=== PATIENT | male | born 1990 | race Caucasian/White ===

== ENCOUNTER 2023-04-22 15:52 | Outpatient (OUT) | payer OTHER, SELFPAY ==
[2023-04-22 16:21] LABS: Basophils Absolute Auto 0.1 10^3/uL (0.0-0.1); Basophils Percent Auto 0.5 % (0.2-2.0); Eosinophils Percent Auto 0.1 % (0.9-7.0); Hematocrit 42.5 % (42.0-54.0); Immature Granulocytes Abs Auto 0.17 10^3/uL (0.00-0.03); Immature Granulocytes Pct Auto 1.1 % (0.0-0.5); Lymphocytes Absolute Auto 2.3 10^3/uL (1.2-3.8); Lymphocytes Percent Auto 15.5 % (20.5-60.0); Mean Corpuscular HGB Conc 32.9 g/dL (29.9-35.2); Mean Corpuscular Hemoglobin 28.7 pg (25.9-34.0); Mean Corpuscular Volume 87.3 fL (80.0-94.0); Mean Platelet Volume 9.4 fL (9.5-13.5); Monocytes Absolute Auto 0.9 10^3/uL (0.3-0.8); Monocytes Percent Auto 6.1 % (1.7-12.0); Neutrophils Absolute Auto 11.6 10^3/uL (1.4-6.5); Neutrophils Percent Auto 76.7 % (43.0-75.0); Nucleated Red Blood Cells 0; Platelet Count 271 10^3/uL (150-450); Red Blood Count 4.87 10^6/uL (4.70-6.10); Red Cell Distribution Width 13.3 % (11.0-15.0); White Blood Count 15.1 10^3/uL (4.0-11.0)
[2023-04-22 16:33] LABS: Alanine Aminotransferase 70 U/L (16-63); Aspartate Amino Transferase 43 U/L (15-37); Triglycerides 63 mg/dL (<=150)
[2023-04-22 16:44] LABS: Erythrocyte Sedimentation Rate 39 mm/hr (<=15)
== END 2023-04-22 15:53 ==
LOC: LAB 15:56
PROVIDERS: PCP Family Medicine; Visit Provider Family Medicine
DX: L73.2 Hidradenitis suppurativa (principal); G89.3 Neoplasm related pain (acute) (chronic); Z79.899 Other long term (current) drug therapy
CPT/HCPCS: 36415; 84450; 84460; 84478; 85025; 85652

== ENCOUNTER 2023-05-26 14:50 | Outpatient (OUT) | payer OTHER, SELFPAY ==
[2023-05-26 15:23] LABS: Alanine Aminotransferase 38 U/L (16-63); Aspartate Amino Transferase 22 U/L (15-37)
[2023-05-26 15:28] LABS: Erythrocyte Sedimentation Rate 40 mm/hr (<=15)
== END 2023-05-26 14:51 | disposition home or self-care (01) ==
LOC: LAB 14:50
PROVIDERS: PCP Family Medicine
DX: Z79.899 Other long term (current) drug therapy (principal)
CPT/HCPCS: 36415; 84450; 84460; 85652

== ENCOUNTER 2023-06-29 08:12 | Outpatient (OUT) | payer OTHER, SELFPAY ==
[2023-06-29 08:56] LABS: Alanine Aminotransferase 31 U/L (16-63); Aspartate Amino Transferase 19 U/L (15-37)
== END 2023-06-29 08:13 | disposition home or self-care (01) ==
LOC: LAB 08:12
PROVIDERS: PCP Family Medicine
DX: L73.2 Hidradenitis suppurativa (principal); G89.3 Neoplasm related pain (acute) (chronic)
CPT/HCPCS: 36415; 84450; 84460

== ENCOUNTER 2023-08-03 16:59 | Outpatient (OUT) | payer OTHER, SELFPAY ==
[2023-08-03 17:31] LABS: Alanine Aminotransferase 30 U/L (16-63); Albumin Level 3.9 g/dL (3.4-5.0); Alkaline Phosphatase 69 U/L (46-116); Anion Gap 10.5; Aspartate Amino Transferase 17 U/L (15-37); Bilirubin Total 0.5 mg/dL (0.2-1.0); Calcium 8.8 mg/dL (8.5-10.1); Carbon Dioxide 29.4 mmol/L (21.0-32.0); Chloride 102 mmol/L (98-107); Estimated GFR (African America >60 (>=60); Estimated GFR (Non-African Ame >60 (>=60); Glucose 110 mg/dL (74-106); Potassium 3.9 mmol/L (3.5-5.1); Sodium 138 mmol/L (136-145); Total Protein 7.9 g/dL (6.4-8.2)
== END 2023-08-03 17:00 | disposition home or self-care (01) ==
LOC: LAB 16:59
PROVIDERS: PCP Family Medicine
DX: L73.2 Hidradenitis suppurativa (principal); G89.3 Neoplasm related pain (acute) (chronic); Z79.899 Other long term (current) drug therapy; L21.8 Other seborrheic dermatitis
CPT/HCPCS: 36415; 80053

== ENCOUNTER 2024-06-15 14:45 | Emergency (ER) | payer OTHER, SELFPAY ==
[2024-06-15 14:55] VITALS: BP 153/107; PULSE 80; TEMP 37.1; O2SAT 99; BMI 39.2
--- NOTE | 2024-06-15 15:23 | ED_ITS ---
HPI - Skin/Abscess/Foreign Bdy General Chief complaint: Skin/Abscess/Foreign Body Stated complaint: REDNESS/GROIN PAIN Time Seen by Provider: 06/15/24 15:02 History of Present Illness HPI narrative: This patient is here for evaluation of sores in his groin area. This is a ongoing and long-lasting chronic problem. He states that he has hidradenitis suppurativa, he describes it as an autoimmune disorder. He is under the care of Dr. SHETTY in [place] a local registration clerk. He has been on several different immune suppressants. He said recently they did a culture of these draining wounds in his perineum area and placed him on antibiotic therapy. He says it really had any better. He is not had fevers or chills at home. He has no knowledge of previously having MRSA. He is not a diabetic and checks his sugar because he has a machine that belongs to his . He is got multiple fissures in the groin creases on the scrotum now near the glans penis. He also been trial of steroids. After several months they stopped that after having some benefit. He is tolerant of doxycycline and has not been taking that recently. He is on androgen suppression therapy as well. He is using pHisoHex soap daily. He does not go into sauna baths or whirlpools. Related Data Home Medications ?Medication ?Instructions ?Recorded ?Confirmed albuterol sulfate 90 mcg/actuation 2 puff inhalation Q12H PRN 06/15/24 06/15/24 aerosol inhaler shortness of breath or wheezing gentamicin 0.1 % topical ointment 1 applic topical Q12H 06/15/24 06/15/24 Allergies Allergy/AdvReac Type Severity Reaction Status Date / Time No Known Drug Allergies Allergy Verified 06/15/24 14:54 Exam Narrative Exam Narrative: Awake alert cooperative vital signs are stable very pleasant good historian very knowledgeable about his condition Overall he has old scar tissue in both his axilla but that area has become as ymptomatic since he has been on immune suppressive therapy. In the genital groin area he has got multiple areas of scarring from previous infections. There is no palpable abscess on the scrotum or in the thigh. There is no actual subcutaneous emphysema. The shaft of the penis and the glans have some small little fissure areas that are identical to the areas of skin involvement in the groin and scrotum area. The perirectal area does not have any fistulas or fissures but the area between the anus and the scrotum has several of these inflamed areas as well. Constitutional Vital Signs, click to edit/add: Last Vital Signs Temp 98.8 F 06/15/24 14:55 Pulse 78 06/15/24 16:35 Resp 18 06/15/24 16:35 BP 148/92 H 06/15/24 16:35 Pulse Ox 98 06/15/24 16:35 O2 Del Method Room Air 06/15/24 14:55 Course Vital Signs Vital signs: Vital Signs Temperature 98.8 F 06/15/24 14:55 Pulse Rate 80 06/15/24 14:55 Respiratory Rate 18 06/15/24 14:55 Blood Pressure 153/107 H 06/15/24 14:55 Pulse Oximetry 99 06/15/24 14:55 Oxygen Delivery Method Room Air 06/15/24 14:55 Temperature 98.8 F 06/15/24 14:55 Pulse Rate 78 06/15/24 16:35 Respiratory Rate 18 06/15/24 16:35 Blood Pressure 148/92 H 06/15/24 16:35 Pulse Oximetry 98 06/15/24 16:35 Oxygen Delivery Method Room Air 06/15/24 14:55 MDM - Skin/Abscess/Foreign Bdy MDM Narrative Medical decision making narrative: Obtaining his medical records he just finished up a course of first generation cephalosporin Duricef. We tried contacting his registration clerk but went to voicemail. We will do another culture and also did a CT to make sure there is no deep abscesses in the perineum. If that is normal we will let him go. His white blood cell count and chemistries are normal. Lab Data Labs: Lab Results 06/15/24 Range/Units 15:39 WBC 9.2 (4.0-11.0) 10^3/uL RBC 5.12 (4.70-6.10) 10^6/uL Hgb 15.1 (14.0-18.0) g/dL Hct 43.5 (42.0-54.0) % MCV 85.0 (80.0-94.0) fL MCH 29.5 (25.9-34.0) pg MCHC 34.7 (29.9-35.2) g/dL RDW 12.5 (11.0-15.0) % Plt Count 229 (150-450) 10^3/uL MPV 9.3 L (9.5-13.5) fL Neut % (Auto) 54.7 (43.0-75.0) % Lymph % (Auto) 32.3 (20.5-60.0) % [place] % (Auto) 8.2 (1.7-12.0) % Eos % (Auto) 3.3 (0.9-7.0) % Baso % (Auto) 1.1 (0.2-2.0) % Neut # (Auto) 5.0 (1.4-6.5) 10^3/uL Lymph # (Auto) 3.0 (1.2-3.8) 10^3/uL [place] # (Auto) 0.8 (0.3-0.8) 10^3/uL Eos # (Auto) 0.3 (0.0-0.7) 10^3/uL Baso # (Auto) 0.1 (0.0-0.1) 10^3/uL Abs Immat Gran (auto) 0.04 H (0.00-0.03) 10^3/uL Imm/Tot Granulo (auto) 0.4 (0.0-0.5) % Sodium 139 (136-145) mmol/L Potassium 3.9 (3.5-5.1) mmol/L Chloride 102 (98-107) mmol/L Carbon Dioxide 27.7 (21.0-32.0) mmol/L Anion Gap 13.2 BUN 13.0 (7.0-18.0) mg/dL Creatinine 0.86 (0.70-1.30) mg/dL Est GFR ( Amer) >60 (>=60) Est GFR (Non-Af Amer) >60 (>=60) BUN/Creatinine Ratio 15.1 Glucose 90 (74-106) mg/dL Lactate 1.0 (0.4-2.0) mmol/L Calcium 9.2 (8.5-10.1) mg/dL Total Bilirubin 0.5 (0.2-1.0) mg/dL AST 22 (15-37) U/L ALT 40 (16-63) U/L Alkaline Phosphatase 70 (46-116) U/L Total Protein 7.8 (6.4-8.2) g/dL Albumin 3.9 (3.4-5.0) g/dL Globulin 3.9 g/dL Albumin/Globulin Ratio 1.0 Discharge Plan Discharge Stand Alone Forms: Portal Instructions Chief Complaint: Skin/Abscess/Foreign Body Clinical Impression: Hidradenitis suppurativa Patient Disposition: Home, Self-Care Time of Disposition Decision: 16:56 Prescriptions / Home Meds: No Action albuterol sulfate 90 mcg/actuation HFA aerosol inhaler 2 puff INHALATION Q12H PRN (Reason: shortness of breath or wheezing) gentamicin 0.1 % ointment 1 applic TOPICAL Q12H Print Language: Korean Additional Instructions: Doxycycline/close follow-up with your registration clerk Referrals: LEONEL HARTMAN [Primary Care Provider] - 1 week
--- NOTE | 2024-06-15 15:26 | CT_ITS ---
The [address] [address] Patient Name: JOSIE SOLIS MRN: [id number] date: 1990 Sex: M Assigned Patient Location: ER Current Patient Location: Accession/Order Number: [id number] Exam Date: 06/15/2024 16:15 Report Date: 06/15/2024 17:16 At the request of: EVA VAIL Procedure: CT abdomen pelvis w con EXAM: CT abdomen pelvis w con HISTORY: Evaluate for abscess in scrotum/perineum area COMPARISON: CT abdomen pelvis 03/09/2023. Ultrasound scrotum 03/03/2023. TECHNIQUE: CT abdomen pelvis with contrast. 100 mL Omnipaque 300. Axial scans with multiplanar reformatted images. Individualized dose reduction used for this exam. FINDINGS: Lower chest: Stable, no acute findings. Small hiatal hernia. ABDOMEN: Homogeneous liver enhancement without focal lesion. Normal-appearing fluid-filled gallbladder. Adrenal glands, pancreas, spleen unremarkable. No abdominal ascites or free fluid. No adenopathy. Normal size aorta. Normal renal enhancement. Lower pole calculus nonobstructing left kidney 7.8 mm. No hydronephrosis, normal ureters. Small cyst upper pole left kidney unchanged. No bowel distention seen. Pelvis: No scrotal retroperitoneal fluid collection or abscess. Diffuse inflammation/abscess in the buttocks on prior scan have cleared. No fluid or inflammation seen in this area currently. Inguinal lymph nodes remain mildly prominent but have decreased Normal fluid-filled the bladder. No free fluid in the pelvis. CT/CT abdomen pelvis w con IMPRESSION: 1. No scrotal or perineal fluid collection or abscess. 2. Previous fluid collections right left buttocks have resolved. Inguinal adenopathy has decreased significantly. 3. No new or acute appearing abnormality lower chest, abdomen or pelvis. Electronically authenticated by: HITESH ENGLISH Date: 06/15/2024 17:16
[2024-06-15 15:53] LABS: Basophils Absolute Auto 0.1 10^3/uL (0.0-0.1); Basophils Percent Auto 1.1 % (0.2-2.0); Eosinophils Absolute Auto 0.3 10^3/uL (0.0-0.7); Eosinophils Percent Auto 3.3 % (0.9-7.0); Hematocrit 43.5 % (42.0-54.0); Hemoglobin 15.1 g/dL (14.0-18.0); Immature Granulocytes Abs Auto 0.04 10^3/uL (0.00-0.03); Immature Granulocytes Pct Auto 0.4 % (0.0-0.5); Lymphocytes Percent Auto 32.3 % (20.5-60.0); Mean Corpuscular HGB Conc 34.7 g/dL (29.9-35.2); Mean Corpuscular Hemoglobin 29.5 pg (25.9-34.0); Mean Platelet Volume 9.3 fL (9.5-13.5); Monocytes Absolute Auto 0.8 10^3/uL (0.3-0.8); Monocytes Percent Auto 8.2 % (1.7-12.0); Neutrophils Percent Auto 54.7 % (43.0-75.0); Platelet Count 229 10^3/uL (150-450); Red Blood Count 5.12 10^6/uL (4.70-6.10); Red Cell Distribution Width 12.5 % (11.0-15.0); White Blood Count 9.2 10^3/uL (4.0-11.0)
[2024-06-15 16:19] LABS: Alanine Aminotransferase 40 U/L (16-63); Albumin Level 3.9 g/dL (3.4-5.0); Alkaline Phosphatase 70 U/L (46-116); Anion Gap 13.2; Aspartate Amino Transferase 22 U/L (15-37); BUN Creatinine Ratio 15.1; Bilirubin Total 0.5 mg/dL (0.2-1.0); Calcium 9.2 mg/dL (8.5-10.1); Carbon Dioxide 27.7 mmol/L (21.0-32.0); Chloride 102 mmol/L (98-107); Estimated GFR (African America >60 (>=60); Estimated GFR (Non-African Ame >60 (>=60); Globulin 3.9 g/dL; Glucose 90 mg/dL (74-106); Potassium 3.9 mmol/L (3.5-5.1); Sodium 139 mmol/L (136-145); Total Protein 7.8 g/dL (6.4-8.2)
[2024-06-15 16:35] VITALS: BP 148/92; PULSE 78; O2SAT 98
== END 2024-06-15 17:08 | disposition home or self-care (01) ==
PROVIDERS: Emergency Provider Emergency Medicine Emergency Medical Services; PCP Family Medicine
DX: L73.2 Hidradenitis suppurativa (principal)
CPT/HCPCS: 36415; 74177; 80053; 83605; 85025; 87070; 87075; 87205; 99284; Q9967

== ENCOUNTER 2025-06-23 15:58 | Emergency (ER) | payer OTHER, SELFPAY ==
[2025-06-23] VITALS (13 sets, daily range): BP systolic 149–156; BP diastolic 98–109; PULSE 79–87; TEMP 36.5; O2SAT 95–99; BMI 45.4
--- OUTSIDE RECORDS SUMMARY | 2025-06-23 16:03 | XMS_ITS | CCD ---
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 Name Role Phone MAHENDRA HARTMAN Primary Care Physician MINNIE, DR CASTANEDA Primary Care Unavailable DIAB ., AMELIE Admitting Unavailable DIAB ., AMELIE Attending Unavailable DIAB ., AMELIE Consulting Unavailable MINNIE, DR CASTANEDA Primary Care Unavailable PAY ., DR EAST Admitting Unavailable PAY ., DR EAST Attending Unavailable Zieber, Jeremy Consulting Unavailable PAY ., DR EAST Consulting Unavailable MINNIE, DR CASTANEDA Primary Care Unavailable CAR ., GISELLE Admitting Unavailable CAR ., GISELLE Attending Unavailable MARKER ., DR FOSTER Consulting Unavailable RASTEGAR, JASON Consulting Unavailable NILL ., DR LARSON Admitting Unavailable NILL ., DR LARSON Attending Unavailable MINNIE, DR CASTANEDA Primary Care Unavailable NILL ., DR LARSON Consulting Unavailable MISC, DR MCGREGOR Admitting Unavailable MISC, DR MCGREGOR Attending Unavailable MINNIE, DR CASTANEDA Primary Care Unavailable MISC, DR MCGREGOR Consulting Unavailable NILL, Marsha R Attending Unavailable Connor, SENIOR DENTIST-C [place] A Attending Provider Connor, SENIOR DENTIST-C [place] A Attending Provider Connor, Belgica A Attending Unavailable Connor, Belgica Malloy Admitting Unavailable Mahendra Hartman DO Primary Care Provider KAMALJIT WESTON Attending Unavailable MAHENDRA HARTMAN Referring Unavailable SHAWN KAMALJIT Raoul Attending Unavailable SHAWN KAMALJIT L Attending Unavailable MAHENDRA HARTMAN Referring Unavailable SHAWN KAMALJIT Raoul Attending Unavailable Allergies Allergy Classification Reported Allergen(s) Allergy Type Date of Onset Reaction(s) Facility (1 source) No Known Medication Allergies; Translations: [No Known Medication Allergies] Propensity to adverse reactions (disorder) [facility] Repository (6 sources) Acetaminophen / oxyCODONE Drug Allergy 3 [facility] Medications Current Medications Medication Drug Class(es) Dates Sig (Normalized) Sig (Original) acetaminophen 325 mg / oxyCODONE hydrochloride 5 mg oral tablet (1 source) Opioid Agonist Start: 03-10-2023 acetaminophen-oxyc odone 325 mg-5 mg Tab Refill(s) 0, 14 tab(s) Start Date: 03/10/23 Status: Ordered [id number] 200 actuat albuterol 0.09 mg/actuat metered dose inhaler (7 sources) beta2-Adrenergic Agonist Start: 02-20-2025 take 2 puff(s) by inhalation every four hours for wheezing albuterol HFA 90 mcg/act inhaler Indications: Asthmatic bronchitis with acute exacerbation, unspecified asthma severity, unspecified whether persistent (HCC) Inhale 2 puffs every 4 (four) hours if needed for wheezing ASTHMA 1 g 11 02/20/2025 Active Start: 07-03-2024 take 2 puff(s) by in halation every four hours for wheezing albuterol HFA 90 mcg/act inhaler Indications: Asthmatic bronchitis with acute exacerbation, unspecified asthma severity, unspecified whether persistent (CMS/HCC) Inhale 2 puffs every 4 (four) hours if needed for wheezing 1 g 11 07/03/2024 Active Start: 09-20-2023 End: 07-03-2024 albuterol HFA 90 mcg/act inh aler Indications: Asthmatic bronchitis with acute exacerbation, unspecified asthma severity, unspecified whether persistent (CMS/HCC) Inhale 2 puffs in the morning and 2 puffs at noon and 2 puffs in the evening and 2 puffs before bedtime. 3 g 3 09/20/2023 07/03/2024 Discontinued Start: 03-08-2023 take 2 puff(s) by in halation every four hours Albuterol (Eqv-ProAir HFA) 2 puff(s), Inhalation, q4hr Shortness of breath or wheezing, Refill(s) 0 Start Date: 03/08/23 Status: Ordered amitriptyline hydrochloride 50 mg oral tablet (3 sources) Tricyclic Antidepressant Start: 12-20-2024 take 1 tablet by mouth at bedtime amitriptyline (Elavil) 50 MG tablet Indications: Insomnia, unspecified type Take 1 tablet (50 mg) by mouth at bedtime 90 tablet 11 12/20/2024 Active amoxicillin 875 mg / clavulanate 125 mg oral tablet (1 source) Penicillin-class Antibacterial Start: 03-10-2023 amoxicillin-clavula merrick 875 mg-125 mg Tab Refill(s) 0, 20 tab(s) Start Date: 03/10/23 Status: Ordered betamethasone 0.5 mg/ml / clotrimazole 10 mg/ml topical cream (2 sources) Azole Antifungal, Corticosteroid Start: 06-22-2024 End: 07-20-2024 clotrimazole-betame thasone (Lotrisone) cream Indications: Intertriginous candidiasis Apply topically 2 (two) times a day for 28 days 45 g 06/22/2024 07/20/2024 Active finasteride 5 mg oral tablet (6 sources) 5-alpha Reductase Inhibitor Start: 04-20-2023 take 2.5 mg by mouth in the morning finasteride (Proscar) 5 MG tablet Take 2.5 mg by mouth in the morning. 04/20/2023 Active fluconazole 150 mg oral tablet (7 sources) Azole Antifungal Start: 02-28-2025 End: 05-08-2025 fluconazole (Diflucan) 150 MG tablet Indications: Intertriginous candidiasis TAKE 1 TABLET BY MOUTH ONCE A DAY FOR 7 DAYS THEN WEEKLY UNTIL GONE 10 tablet 05/08/2025 Active Start: 06-22-2024 End: 12-20-2024 take 1 tablet by mouth once daily fluconazole (Diflucan) 150 MG tablet Indications: Intertriginous candidiasis Take 1 tablet (150 mg) by mouth Daily 7 tablet 06/22/2024 12/20/2024 Discontinued gentamicin 0.001 mg/mg topical ointment (6 sources) Start: 05-19-2024 gentamicin (Garamycin) 0.1 % ointment APPLY SMALL AMOUNT TO AFFECTED AREAS ON TRUNK AND EXTREMITIES TWICE DAILY UNTIL HEALED 05/19/2024 Active ibuprofen 800 mg oral tablet (1 source) Nonsteroidal Anti-inflammatory Drug Start: 03-10-2023 take 1 tablet by mouth every eight hours, then take 4 tablets by mouth once daily at mealtime ibuprofen 800 mg Tab 800 mg = 1 tab(s), Oral, q8hr, not to exceed 3200 mg/day with food or milk, # 30 tab(s), Refills(s) 0, Pharmacy: [facility]/pharmacy #[id number], 167.6, cm, 03/10/23 14:23:00 EDT, Height/Length Dosing, 115.9, kg, 03/10/23 14:23:00 EDT, Weight Dosing Start Date: 03/10/23 Status: Ordered Minocycline (1 source) Tetracycline-class Drug Start: 03-10-2023 minocycline as directed, Refills(s) 0 Start Date: 03/10/23 Status: Ordered mupirocin 0.02 mg/mg topical ointment (6 sources) RNA Synthetase Inhibitor Antibacterial Start: 03-15-2023 mupirocin (Bactroban) 2 % ointment APPLY TO AFFECTED AREAS IN GROIN DAILY. MIX WITH NYSTATIN 03/15/2023 Active predniSONE 10 mg oral tablet (6 sources) Start: 04-20-2023 predniSONE (Deltasone) 10 MG tablet TAKE 4 TABLET BY MOUTH ONCE DAILY X5 DAYS, THEN 2 TABLETS X5 DAYS THEN 1 TABLET X 5 DAYS 04/20/2023 Active 1 ml secukinumab 150 mg/ml prefilled syringe (6 sources) Interleukin-17A Antagonist Start: 05-02-2024 inject 300 mg by subcutaneous injection every 30 days Secukinumab, 300 MG Dose, (Cosentyx, 300 MG Dose,) 150 MG/ML solution prefilled syringe Indications: Hidradenitis suppurativa Inject 300 mg under the skin every 30 (thirty) days 05/02/2024 Active traZODone hydrochloride 50 mg oral tablet (7 sources) Serotonin Reuptake Inhibitor Start: 11-30-2024 take 1 tablet by mouth at bedtime traZODone (Desyrel) 50 MG tablet Indications: Insomnia, unspecified type Take 1 tablet (50 mg) by mouth at bedtime 30 tablet 2 11/30/2024 Active Start: 12-27-2023 take 1 tablet by cele th once daily at bedtime traZODone (Desyrel) 50 MG tablet Indications: Insomnia, unspecified type TAKE 1 TABLET BY MOUTH EVERY DAY AT BEDTIME 30 tablet 2 12/27/2023 Active Start: 03-08-2023 take 1 tablet by cele th once daily at bedtime traZODONE 50 mg Tab 50 mg = 1 tab(s), Oral, Once a day (at bedtime), Refills(s) 0 Start Date: 03/08/23 Status: Ordered Rinvoq (1 source) Start: 03-08-2023 Rinvoq as dire cted, Refills(s) 0 Start Date: 03/08/23 Status: Ordered Completed/Discontinued Medications Medication Drug Class(es) Dates Sig (Normalized) Sig (Original) doxycycline hyclate 100 mg oral capsule (5 sources) Tetracycline-class Drug Start: 06-15-2024 End: 12-20-2024 take 1 capsule by mouth in the morning doxycycline (Vibramycin) 100 MG capsule Take 100 mg by mouth in the morning and 100 mg before bedtime. 06/15/2024 12/20/2024 Discontinued levoFLOXacin 750 mg oral tablet (2 sources) Quinolone Antimicrobial Start: 06-22-2024 End: 07-02-2024 take 1 tablet by mouth once daily levoFLOXacin (Levaquin) 750 MG tablet Indications: Hidradenitis suppurativa Take 1 tablet (750 mg) by mouth Daily for 10 days 10 tablet 06/22/2024 07/02/2024 sulfamethoxazole 800 mg / trimethoprim 160 mg oral tablet (1 source) Dihydrofolate Reductase Inhibitor Antibacterial, Sulfonamide Antimicrobial Start: 03-10-2023 take 1 tablet by mouth every twelve hours sulfamethoxazole- trimethoprim 800 mg-160 mg Tab Refill(s) 0, 20 EA, TAKE 1 TABLET BY MOUTH EVERY 12 HOURS Start Date: 03/10/23 Status: Ordered Problems Active Problems Problem Classification Problem Date Documented Date Episodic/Chronic Abdominal hernia (1 source) Bilateral inguinal hernia, without obstruction or gangrene, not specified as recurrent; Translations: [COLLETTE ING PATRIA NO OBST/GANG NOT RECUR] Onset: 03-04-2023 Episodic Anxiety disorders (6 sources) Anxiety; Translations: [Anxiety disorder, unspecified] Onset: 04-27-2023 04-27-2023 Chronic Asthma (6 sources) Asthmatic bronchitis; Translations: [Unspecified asthma, uncomplicated] Onset: 04-27-2023 04-27-2023 Chronic Mood disorders (6 sources) Depressive disorder; Translations: [Depression] Onset: 04-27-2023 04-27-2023 Chronic Mycoses (3 sources) Candidal intertrigo; Translations: [Candidiasis of skin and nail] 06-22-2024 Episodic Other aftercare (1 source) Other correction (current) drug therapy; Translations: [OTH SNF CURRENT DRUG THERAPY] Onset: 03-11-2023 Episodic Other male genital disorders (3 sources) Other specified disorders of the male genital organs; Translations: [OTHER SPEC D/O MALE GENITAL ORGANS] Onset: 03-03-2023 Episodic Other nervous system disorders (2 sources) Neoplasm related pain (acute) (chronic); Translations: [NEOPLASM RELATED PAIN ACUTE CHRONIC] Onset: 06-11-2022 Chronic Other nutritional; endocrine; and metabolic disorders (7 sources) Body mass index 40+ - severely obese; Translations: [Body mass index (BMI) 40.0-44.9, adult] Onset: 04-28-2023 03-10-2023 Chronic Other nutritional; endocrine; and metabolic disorders (2 sources) Insulin resistance; Translations: [Insulin resistance] 12-20-2024 Chronic Other screening for suspected conditions (not mental disorders or infectious disease) (2 sources) Patient encounter status; Translations: [Encounter for screening for cardiovascular disorders] 12-20-2024 Episodic Other skin disorders (4 sources) Hidradenitis suppurativa; Translations: [HIDRADENITIS SUPPURATIVA] Onset: 06-11-2022 Episodic Substance-related disorders (9 sources) Smoker; Translations: [Nicotine dependence, cigarettes, uncomplicated] Onset: 03-04-2023 03-08-2023 Chronic Past or Other Problems Problem Classification Problem Date Documented Da te Episodic/Chronic Other nutritional; endocrine; and metabolic disorders (6 sources) Excessive thirst; Translations: [Polydipsia] Onset: 04-27-2023 04-27-2023 Episodic Other skin disorders (12 sources) Hidradenitis suppurativa; Translations: [Hidradenitis suppurativa] Onset: 06-09-2022 03-08-2023 Episodic Residual codes; unclassified (8 sources) Insomnia; Translations: [Insomnia, unspecified] Onset: 04-27-2023 04-27-2023 Episodic Skin and subcutaneous tissue infections (12 sources) Abscess of buttock; Translations: [Cutaneous abscess of buttock] Onset: 03-10-2023 Episodic Results Test Name Value Interpretation Reference Range Facility Gram Stainon 05-16-2024 Microscopic observation Gram stain Nom (Unsp spec) LEFT ANTERIOR PROXIMAL THIGH, RIGHT ANTERIOR PROXIMAL THIGH AND TRUNK Gram Stain Result 2+ White Blood Cells 1+ Gram Positive Cocci 1+ Gram Negative Bacilli PERFORMED BY: [facility] [address] [place] [address] PATHOLOGIST PIECE PRESSER DARYL Payen [facility] Comment on above: Performed By: #### G S, CUSUP #### [facility] [address] Gram stain for investigation of transfusion reactionOrdered By: Belgica Ryan on 05-16-2024 Microscopic observation Gram stain Nom (Unsp spec) [facility] Superficial Wound Cultureon 05-16-2024 Superficial Wound Culture LEFT ANTERIOR PROXIMAL THIGH, RIGHT ANTERIOR PROXIMAL THIGH AND TRUNK ORGANISM: Escherichia coli (MDRO) (O:ESCCOLMDRO) Quantity of Growth Moderate Growth ORGANISM: Strep agalactiae - (group b) (O:STRAGA) Quantity of Growth Light Growth ORGANISM: Methicillin Resis Staph Aureus (O:MRSA) Quantity of Growth Light Growth Aerobic ALLAN Charge (NMIC56) ----- SUSCEPTIBILITY ---- ORGANISM: O:ESCCOLMDRO ANTIBIOTIC INTERPRETATION ALLAN Amikacin S <16 Amoxacillin/K Clavulanate S <8 Ampicillin R >16 Ampicillin/Sulbactam R >16 Aztreonam S <4 Cefazolin S <2 Cefepime S <2 Ceftazidime S <1 Ceftazidime/Avibacta m S <4 Ceftolozane/Tazobact am S <2 Ceftriaxone S <1 Cefuroxime S <4 Ciprofloxacin S <0.25 Ertapenem S <0.5 Gentamicin S <2 Levofloxacin S <0.5 Meropenem S <1 Meropenem/Vaborbacta m S <2 Piperacillin/Tazobac bailey S <8 Tetracycline R >8 Tigecycline S <2 Tobramycin S <2 Trimethoprim/Sulfame thoxazole R >2 Aerobic ALLAN Charge (PCMIC38) ----- SUSCEPTIBILITY ---- ORGANISM: O:MRSA ANTIBIOTIC INTERPRETATION ALLAN Azithromycin R >4 Ceftaroline S <0.5 Clindamycin R >4 Daptomycin S 1 Linezolid S 2 Oxacillin R >2 Penicillin R 1 Tetracycline R >8 Trimethoprim/Sulfame thoxazole S <0.5 Vancomycin S 1 S = SUSCEPTIBLE I = INTERMEDIATE R = RESISTANT BLANK = DATA NOT AVAILABLE, OR DRUG NOT ADVISABLE OR TESTED R* = RESISTANCE DUE TO EXTENDED SPECTRUM BETA-LACTAMASES ESBL = EXTENDED SPECTRUM BETA-LACTAMASE TFG = THYMIDINE-DEPENDENT STRAIN SMILEY = BETA-LACTAMASE POSITIVE IB = INDUCIBLE BETA-LACTAMASE. APPEARS IN PLACE OF 'S' WITH SPECIES KNOWN TO POSSESS INDUCIBLE BETA-LACTAMASES. POTENTIALLY THEY MAY BECOME RESISTANT TO ALL B-LACTAM DRUGS. PERFORMED BY: [place] [address] PATHOLOGIST PIECE PRESSER DARYL ORTIZ M.D. Normal [facility] Comment on above: Performed By: #### G S, CUSUP #### [facility] [address] [id number] [facility] Lab Reportson 03-15-2023 Lab Reports [id number]# 1.00CD:127 Normal [facility] ED Note-Physicianon 03-11-20 ED Note-Physician [id number] #1.00CD:127 Normal [facility] Formson 03-11-2023 Forms [id number] #1.00CD:127 Normal [facility] RAD - CT Reporton 03-11-2023 RAD - CT Report [id number] #1.00CD:127 [facility] Ambulatory Visit Summaryon 0 03-10-2023 Ambulatory Visit Summary JOISE SOLIS :1990 Visit Date:03/10/2023 Ambulatory Visit Instructions Your Care Team Attending Physician - Marsha DRAKE MD Primary Care Physician - MAHENDRA HARTMAN DO This Is Your Medications List acetaminophen-oxycod one (acetaminophen-oxyco done 325 mg-5 mg Tab) amoxicillin-clavulan ate (amoxicillin-clavula merrick 875 mg-125 mg Tab) sulfamethoxazole-tri methoprim (sulfamethoxazole-tr imethoprim 800 mg-160 mg Tab) Contact prescribing physician if questions or concerns albuterol (Albuterol (Eqv-ProAir HFA)) minocycline trazodone (traZODONE 50 mg Tab) upadacitinib (Rinvoq) Procedures Performed Appendectomy, Cystectomy, Tonsillectomy and adenoidectomy. Discharge Vitals Heart Rate (Peripheral) 72 Respiratory Rate 16 Blood Pressure 126/84 Height 167.6 cm Height 66 in Weight 115.9 kg Weight 254.98 lb BMI 41.26 Medications What How Much When Instructions New acetaminophen-oxycod one (acetaminophen-oxyco done 325 mg-5 mg Tab) 14 tab(s) New amoxicillin-clavulan ate (amoxicillin-clavula merrick 875 mg-125 mg Tab) 20 tab(s) New sulfamethoxazole-tri methoprim (sulfamethoxazole-tr imethoprim 800 mg-160 mg Tab) 20 EA, TAKE 1 TABLET BY MOUTH EVERY 12 HOURS Unchanged albuterol (Albuterol (Eqv-ProAir HFA)) 2 Puffs Inhalation Every 4 hours as needed for Shortness of breath or wheezing Contact prescribing physician if questions or concerns Unchanged minocycline as directed Contact prescribing physician if questions or concerns Unchanged trazodone (traZODONE 50 mg Tab) 1 Tablets By Mouth Once a day (at bedtime) Contact prescribing physician if questions or concerns Unchanged upadacitinib (Rinvoq) as directed Contact prescribing physician if questions or concerns Allergies No Known Allergies No Known Medication Allergies Problems Ongoing - Any problem that you are currently receiving treatment for. BMI 40.0-44.9, adult Hidradenitis suppurativa Smoker Normal [facility] CULTURE WOUNDon 03-10-2023 CULTURE WOUND Culture Observations: No growth of aerobic bacteria at 72 hours. Culture Observations: No growth of anaerobes at 72 hours. Normal [facility] Comment on above: Performed By: #### W OUNDCX #### [facility] [address] [address] [address] Shukri Guillen CBC AUTO DIFFon 03-09-2023 BASO # 0.1 103/ul Normal 0.0-0.1 [facility] Comment on above: Performed By: #### C BC #### [facility] [address] [place] [address] Dr. Shukri Guillen Basophils/100 WBC (Bld) 0.5 % Normal 0.2-2.0 [facility] Comment on above: Performed By: #### C BC #### [facility] [address] [place] [address] Dr. Shukri Guillen EO # 0.3 103/ul Normal 0.0-0.7 [facility] Comment on above: Performed By: #### C BC #### [facility] [address] [place] [address] Dr. Shukri Guillen Eosinophils/100 WBC (Bld) 1.9 % Normal 0.9-7.0 [facility] Comment on above: Performed By: #### C BC #### [facility] [address] [place] [address] Dr. Shukri Guillen Erythrocyte distribution width (RBC) [Ratio] 12.3 % Normal 11.0-15.0 [facility] Comment on above: Performed By: #### C BC #### [facility] [address] [place] [address] Dr. Shukri Guillen Hematocrit (Bld) [Volume fraction] 41.1 % Critically low 42.0-54.0 [facility] Comment on above: Performed By: #### C BC #### [facility] [address] [place] [address] Dr. Shukri Guillen Hemoglobin (Bld) [Mass/Vol] 14.0 g/dL Normal 14.0-18.0 [facility] Comment on above: Performed By: #### C BC #### [facility] [address] [place] [address] Dr. Shukri Guillen IG # 0.10 10e3/ul Critically high 0.00-0.03 [facility] Comment on above: Performed By: #### C BC #### [facility] [address] [place] [address] Dr. Shukri Guillen IG % 0.8 % Critically high 0.0-0.5 [facility] Comment on above: Performed By: #### C BC #### [facility] [address] [place] [address] Dr. Shukri Guillen LYMPH # 2.1 103/ul Normal 1.2-3.8 [facility] Comment on above: Performed By: #### C BC #### [facility] [address] [place] [address] Dr. Shukri uGillen Lymphocytes/100 WBC (Bld) 16.3 % Critically low 20.5-60.0 [facility] Comment on above: Performed By: #### C BC #### [facility] [address] [place] [address] Dr. Shukri Guillen MANUAL DIFF REQ NO Normal [facility] Comment on above: Performed By: #### C BC #### [facility] [address] [place] [address] Dr. Shukri Guillen MCH (RBC) [Entitic mass] 29.5 pg Normal 25.9-34.0 [facility] Comment on above: Performed By: #### C BC #### [facility] [address] [place] [address] Dr. Shukri Guillen MCHC (RBC) [Mass/Vol] 34.1 g/dL Normal 29.9-35.2 [facility] Comment on above: Performed By: #### C BC #### [facility] [address] [place] [address] Dr. Shukri Guillen MCV (RBC) [Entitic vol] 86.5 fL Normal 80.0-94.0 [facility] Comment on above: Performed By: #### C BC #### [facility] [address] [place] [address] Dr. Shukri Guillen MONO # 1.3 103/ul Critically high 0.3-0.8 [facility] Comment on above: Performed By: #### C BC #### [facility] [address] [address] [address] Shukri Guillen Monocytes/100 WBC (Bld) 9.6 % Normal 1.7-12.0 [facility] Comment on above: Performed By: #### C BC #### [facility] [address] [place] [address] Dr. Shukri Guillen NEUT # 9.2 103/ul Critically high 1.4-6.5 [facility] Comment on above: Performed By: #### C BC #### [facility] [address] [place] [address] Dr. Shukri Guillen Neutrophils/100 WBC (Bld) 70.9 % Normal 43.0-75.0 [facility] Comment on above: Performed By: #### C BC #### [facility] [address] [place] [address] Dr. Shukri Guillen Platelet mean volume (Bld) [Entitic vol] 9.2 fL Critically low 9.5-13.5 [facility] Comment on above: Performed By: #### C BC #### [facility] [address] [place] [address] Dr. Shukri Guillen PLT 258 103/ul Normal 150-450 [facility] Comment on above: Performed By: #### C BC #### [facility] [address] [place] [address] Dr. Shukri Guillen RBC 4.75 106/ul Normal 4.70-6.10 [facility] Comment on above: Performed By: #### C BC #### [facility] [address] [place] [address] Dr. Shukri Guillen WBC 13.0 103/ul Critically high 4.0-11.0 [facility] Comment on above: Performed By: #### C BC #### [facility] [address] [place] [address] ABD/PELV W CONon 03-09-[address] ABD/PELV W CON EXAM: CT ABD/PELV W CON HISTORY: Abscess of buttock COMPARISON: None. TECHNIQUE: Axial CT imaging was performed through the abdomen and pelvis with intravenous contrast. Multiplanar reformats were performed. Dose reduction techniques were achieved by using automated exposure control and/or adjustment of mA and/or kV according to patient size and/or use of iterative reconstruction technique. FINDINGS: Lung bases: Lung bases are clear. No pleural effusion. GI upper: Small hiatal hernia. Liver: Normal size and contour. Gallbladder: No significant abnormality. No cholelithiasis. Biliary system: No intra or extrahepatic biliary ductal dilatation. Spleen: Normal size. Pancreas: Unremarkable. Adrenal glands: Normal adrenal glands. Kidneys/ureters: Normal contours. No hydronephrosis. There is a 0.5 cm nonobstructing stone in the lower pole of the left kidney. Vessels: No aneurysm. Lymph Nodes: Prominent left greater than right inguinal lymph nodes, measuring 1.5 cm, likely reactive. Small bowel: No wall thickening or dilatation. Colon: No wall thickening or dilatation. There are sigmoid diverticula without evidence of acute diverticulitis. Appendix: Appendectomy. Peritoneal cavity: No free fluid or pneumoperitoneum. Lower : Small bilateral hydrocele and questionable scrotal edema. Bones: No acute bony abnormality. Soft tissues: There is a 3.1 cm rim-enhancing fluid collection in the right medial buttock (series 3, image 177), representing abscess. There is a 1.6 cm rim-enhancing fluid collection in the left medial buttock (series 3, image 169), representing an abscess. Additional findings: None. IMPRESSION: 3.1 cm abscess in the right medial buttock 1.6 cm abscess in the left medial buttock. 0.5 cm nonobstructing left renal stone. Small bilateral hydrocele and questionable scrotal edema. Prominent left greater than right inguinal lymph nodes, measuring 1.5 cm, likely reactive. Electronically authenticated by: JASON CARPENTER Date: 2023-03-09 21:21 Normal [facility] CULTURE BLOODon 03-09-2023 Microscopic examination of blood, culture Culture Observations: NO GROWTH AT 5 DAYS. Isolate 1 BC_BA_NA Normal [facility] Comment on above: Performed By: #### B LDCX1 ####[facility] [address] [place] [id number] Shukri Guillen LACTATE/LACTIC ACIDon 2022 Lactate [Moles/Vol] 0.8 mmol/L Normal 0.4-2.0 [facility] Comment on above: Performed By: #### L ACT #### [facility] [address] [place] [address] Dr. Shukri Guillen PROF 14(COMP METB)on 023 Albumin [Mass/Vol] 3.7 g/dL Normal 3.4-5.0 [facility] Comment on above: Performed By: #### C MP #### [facility] [address] [place] [address] Dr. Shukri Guillen Albumin/Globulin [Mass ratio] 0.8 {ratio} Normal [facility] Comment on above: Performed By: #### C MP #### [facility] [address] [place] [address] Dr. Shukri uGillen ALP [Catalytic activity/Vol] 95 U/L Normal 46-116 [facility] Comment on above: Performed By: #### C MP #### [facility] [address] [place] [address] Dr. Shukri Guillen ALT [Catalytic activity/Vol] 41 U/L Normal 16-63 [facility] Comment on above: Performed By: #### C MP #### [facility] [address] [place] [address] Dr. Shukri Guillen Anion gap [Moles/Vol] 14.1 mmol/L Normal [facility] Comment on above: Performed By: #### C MP #### [facility] [address] [place] [address] Dr. Shukri Guillen AST [Catalytic activity/Vol] 26 U/L Normal 15-37 [facility] Comment on above: Performed By: #### C MP #### [facility] [address] [place] [address] Dr. Shukri Guillen Bilirubin [Mass/Vol] 0.5 mg/dL Normal 0.2-1.0 [facility] Comment on above: Performed By: #### C MP #### [facility] [address] [place] [address] Dr. Shukri Guillen Calcium [Mass/Vol] 9.1 mg/dL Normal 8.5-10.1 [facility] Comment on above: Performed By: #### C MP #### [facility] [address] [address] [address] Shukri Guillen Chloride [Moles/Vol] 100 mmol/L Normal 98-107 [facility] Comment on above: Performed By: #### C MP #### [facility] [address] [address] [address] Shukri Guillen CO2 [Moles/Vol] 26.2 mmol/L Normal 21.0-32.0 [facility] Comment on above: Performed By: #### C MP #### [facility] [address] [address] [address] Shukri Guillen Creatinine [Mass/Vol] 0.95 mg/dL Normal 0.70-1.30 [facility] Comment on above: Performed By: #### C MP #### [facility] [address] [place] [address] Dr. Shukri Guillen EGFR-AF EQUATORIAL GUINEAN >60 Normal >=60 [facility] Comment on above: Performed By: #### C MP #### [facility] [address] [place] [address] Dr. Shukri Guillen EGFR-NON AF EQUATORIAL GUINEAN >60 Normal >=60 [facility] Comment on above: Performed By: #### C MP #### [facility] [address] [place] [address] Dr. Shukri Guillen Globulin (S) [Mass/Vol] 4.4 g/dL Normal [facility] Comment on above: Performed By: #### C MP #### [facility] [address] [place] [address] Dr. Shukri Guillen Glucose [Mass/Vol] 83 mg/dL Normal 74-106 [facility] Comment on above: Performed By: #### C MP #### [facility] [address] [address] [address] Shukri Guillen Potassium [Moles/Vol] 4.3 mmol/L Normal 3.5-5.1 [facility] Comment on above: Performed By: #### C MP #### [facility] [address] [address] [address] Shukri Guillen Protein [Mass/Vol] 8.1 g/dL Normal 6.4-8.2 [facility] Comment on above: Performed By: #### C MP #### [facility] [address] [place] [address] Dr. Shukri Guillen Sodium [Moles/Vol] 136 mmol/L Normal 136-145 [facility] Comment on above: Performed By: #### C MP #### [facility] [address] [place] [address] Dr. Shukri Guillen Urea nitrogen [Mass/Vol] 19.0 mg/dL Critically high 7.0-18.0 [facility] Comment on above: Performed By: #### C MP #### [facility] [address] [place] [address] Dr. Shukri Guillen Urea nitrogen/Creatinine [Mass ratio] 20.0 mg/mg Normal [facility] Comment on above: Performed By: #### C MP #### [facility] [address] [place] [address] Dr. Shukri Guillen ED Note-Physicianon 03-04-20 23 ED Note-Physician [id number] #[id number]:127 Normal [facility] Physician Referralon 023 Physician Referral [id number] #1.00CD:127 Normal [facility] RAD - Ultrasound Reporton RAD - Ultrasound Report [id number] #1.00CD:127 Normal [facility] ER URINE PROFILEon 3 Bilirubin Ql (U) Negative Normal NEGATIVE [facility] Comment on above: Performed By: #### E RUR #### [facility] [address] [place] [address] Dr. Shukri Guillen Clarity (U) CLEAR Normal CLEAR [facility] Comment on above: Performed By: #### E RUR #### [facility] [address] [place] [address] Dr. Shukri Guillen Color (U) YELLOW Normal YELLOW [facility] Comment on above: Performed By: #### E RUR #### [facility] [address] [place] [address] Dr. Shukri STYLES A micrscopic examination will be performed if indicated. Normal [facility] Comment on above: Performed By: #### E RUR #### [facility] [address] [place] [address] Dr. Shukri Guillen Glucose Ql (U) Negative Normal NEGATIVE [facility] Comment on above: Performed By: #### E RUR #### [facility] [address] [place] [address] Dr. Shukri Guillen Hemoglobin Ql (U) Negative Normal NEGATIVE [facility] Comment on above: Performed By: #### E RUR #### [facility] [address] [place] [address] Dr. Shukri Guillen Ketones Ql (U) Negative Normal NEGATIVE [facility] Comment on above: Performed By: #### E RUR #### [facility] [address] [place] [address] Dr. Shukri Guillen LEUKOCYTES Negative Normal NEGATIVE [facility] Comment on above: Performed By: #### E RUR #### [facility] [address] [place] [address] Dr. Shukri Guillen Nitrite Ql (U) Negative Normal NEGATIVE [facility] Comment on above: Performed By: #### E RUR #### [facility] [address] [place] [address] Dr. Shukri Guillen pH (U) 6.0 [pH] Normal 5-9 [facility] Comment on above: Performed By: #### E RUR #### [facility] [address] [place] [address] Dr. Shukri Guillen SPEC GRAVITY 1.025 Normal 1.005-<=1.025 [facility] Comment on above: Performed By: #### E RUR #### [facility] [address] [place] [address] Dr. Shukri Guillen UA PROTEIN Negative Normal NEGATIVE/ TRACE [facility] Comment on above: Performed By: #### E RUR #### [facility] [address] [address] [address] Shukri Guillen UR MICRO IND NOT INDICATED Normal [facility] Comment on above: Performed By: #### E RUR #### [facility] [address] [address] [address] Shukri Guillen Urobilinogen Qn (U) 0.2 {Bill'U}/dL Normal 0.2 - 1. 0 [facility] Comment on above: Performed By: #### E RUR #### [facility] [address] [address] [address] Shukri Guillen US SCROTUM W VASCULAR ORGANo n 03-03-2023 US SCROTUM W VASCULAR ORGAN EXAMINATION: US SCROTUM W VASCULAR ORGAN HISTORY: Pain ; left scrotal swelling and testicular pain for 3 days COMPARISON: No relevant comparison available. TECHNIQUE: High-resolution sonographic imaging of the scrotum and contents was performed. FINDINGS: RIGHT: TESTICLE: Homogeneous echotexture. No visible mass. Color Doppler flow is present. Spectral Doppler demonstrates normal arterial waveform and flow, 4/2 cm/s (PSV/EDV), and normal venous wave flow averaging 2 cm/s. EPIDIDYMIS: Normal size and echogenicity. OTHER: Large amount of fat within cephalad aspect of right hemiscrotum. Scrotal wall thickening, 7 mm. LEFT: TESTICLE: Homogeneous echotexture. No visible mass. Color Doppler flow is present. Spectral Doppler demonstrates arterial waveform and flow, 3/1 cm/s (PSV/EDV), and normal venous flow averaging 1 cm/s. EPIDIDYMIS: Normal size and echogenicity. OTHER: Large amount of fat within cephalad aspect of left hemiscrotum. Scrotal wall thickening, 10 mm. IMPRESSION: 1. Large amount of fat within the right and left side of the scrotum suggesting bilateral inguinal hernias. 2. Normal appearance of testicles and epididymides; no torsion or hyperemia to suggest infectious etiology. 3. Bilateral marked scrotal skin thickening. Electronically authenticated by: JEREMY JEROME Date: 2023-03-03 11:51 Normal [facility] CULTURE WOUNDon 12-17-2022 CULTURE WOUND Isolate 1 Streptococcus agalactiae Heavy growth of Isolate 2 Finegoldia magna Moderate growth of Isolate 3 Prevotella bivia Heavy growth of ORGANISM 1 Streptococcus agalactiae ANTIBIOTIC M.I.C RX STATUS Benzylpenicillin <=0.06 S F Ampicillin <=0.25 S F Cefotaxime <=0.12 S F Ceftriaxone <=0.12 S F Levofloxacin 0.5 S F Inducible Clindamycin Resistance Neg NEG F Erythromycin >=8 R F Clindamycin >=1 R F Linezolid <=2 S F Vancomycin 0.5 S F Tetracycline >=16 R F Normal [facility] Comment on above: Performed By: #### W OUNDCX ####[facility] [address] [address]Dr. Shukri Guillen QUANTIFERON TB GOLD PLUSon 0 06-11-2022 QuantiFERON Criteria Comment Normal [facility] Comment on above: Result Comment: Baldemar tiFERON-TB Gold Plus is a qualitative indirect test for M tuberculosis infection (including disease) and is intended for use in conjunction with risk assessment, radiography, and other medical and diagnostic evaluations. The QuantiFERON-TB Gold Plus result is determined by subtracting the Nil value from either TB antigen (Ag) value. The Mitogen tube serves as a control for the test. Performed By: #### Q NTTB #### [facility] [address] [place] [address] Dr. Shukri Guillen QuantiFERON Incubation Incubation performed. Normal [facility] Comment on above: Performed By: #### Q NTTB #### [facility] [address] [place] [address] Dr. Shukri Guillen QuantiFERON Mitogen Value >10.00 Normal [facility] Comment on above: Performed By: #### Q NTTB #### [facility] [address] [place] [address] Dr. Shukri Guillen QuantiFERON Nil Value 0.03 IU/mL Normal [facility] Comment on above: Performed By: #### Q NTTB #### [facility] [address] [place] [address] Dr. Shukri Guillen QuantiFERON TB1 Ag Value 0.04 IU/mL Normal [facility] Comment on above: Performed By: #### Q NTTB #### [facility] [address] [address] [address] Shukri Guillen QuantiFERON TB2 Ag Value 0.03 IU/mL Normal [facility] Comment on above: Performed By: #### Q NTTB #### [facility] [address] [id number] [address] Shukri Guillen QuantiFERON-TB Gold Plus Negative Normal Negative [facility] Comment on above: Result Comment: No r esponse to M tuberculosis antigens detected. Infection with M tuberculosis is unlikely, but high risk individuals should be considered for additional testing (ATS/IDSA/CDC Clinical Practice Guidelines, 2017). The reference range is an Antigen minus Nil result of <0.35 IU/mL. Chemiluminescence immunoassay methodology Performed By: #### Q NTTB #### [facility] [address] [place] [address] Dr. Shukri Guillen HEP B SURFACE ANTIGEN SCREEN on 06-10-2022 HBsAg Screen Negative Normal Negative [facility] Comment on above: Performed By: #### H BSANS #### [facility] [address] [id number] Shukri Guillen HEPATITIS C ANTIBODYon 06-10 Hep C Virus Ab <0.1 Normal 0.0-0.9 [facility] Comment on above: Result Comment: Nega tive: < 0.8 Indeterminate: 0.8 - 0.9 Positive: > 0.9 . HCV antibody alone does not differentiate between previous resolved infection and active infection. The CDC and current clinical guidelines recommend that a positive HCV antibody result be followed up with an HCV RNA test to support the diagnosis of acute HCV infection. [facility] offers Hepatitis C Virus (HCV) RNA, Diagnosis, NEO (476941) and Hepatitis C Virus (HCV) Antibody with reflex to Quantitative Real-time PCR ([id number]). Performed By: #### H CV ####[facility] [address] [place], [place] [address]JzDr. Shukri Guillen CBC AUTO DIFFon 06-09-2022 BASO # 0.1 103/ul Normal 0.0-0.1 [facility] Comment on above: Performed By: #### C BC ####[facility] [address] [place], [place] [address]Dr. Shukri Wilmer Basophils/100 WBC (Bld) 0.9 % Normal 0.2-2.0 [facility] Comment on above: Performed By: #### C BC ####[facility] [address] [place], [place] [address]Dr. Shukri Guillen EO # 0.3 103/ul Normal 0.0-0.7 [facility] Comment on above: Performed By: #### C BC ####[facility] [address] [place], [place] [address]Dr. hSukri Guillen Eosinophils/100 WBC (Bld) 2.7 % Normal 0.9-7.0 [facility] Comment on above: Performed By: #### C BC ####[facility] [address] [place], [place] [address]Dr. Shukri Guillen Erythrocyte distribution width (RBC) [Ratio] 12.7 % Normal 11.0-15.0 [facility] Comment on above: Performed By: #### C BC ####[facility] [address] [place], [place] [address]Dr. Shukri Wilmer Hematocrit (Bld) [Volume fraction] 42.4 % Normal 42.0-54.0 [facility] Comment on above: Performed By: #### C BC ####[facility] [address] [place], [place] [address]Dr. Shukri Wilmer Hemoglobin (Bld) [Mass/Vol] 14.4 g/dL Normal 14.0-18.0 [facility] Comment on above: Performed By: #### C BC ####[facility] [address] [place], [place] [address]Dr. Shukri Guillen IG # 0.03 10e3/ul Normal 0.00-0.03 [facility] Comment on above: Performed By: #### C BC ####[facility] [address] [place], [place] [address]Dr. Shukri Guillen IG % 0.3 % Normal 0.0-0.5 [facility] Comment on above: Performed By: #### C BC ####[facility] [address] [address]Dr. Shukri Wilmer LYMPH # 2.7 103/ul Normal 1.2-3.8 [facility] Comment on above: Performed By: #### C BC ####[facility] [address] [address]Dr. Fabyhay Guillen Lymphocytes/100 WBC (Bld) 26.2 % Normal 20.5-60.0 [facility] Comment on above: Performed By: #### C BC ####[facility] [address] [address]Dr. Shukri Guillen MANUAL DIFF REQ NO Normal [facility] Comment on above: Performed By: #### C BC ####[facility] [address] [place], [place] [address]Dr. Shukri Wilmer MCH (RBC) [Entitic mass] 29.3 pg Normal 25.9-34.0 [facility] Comment on above: Performed By: #### C BC ####[facility] [address] [place], [place] [address]Dr. Shukri Guillen MCHC (RBC) [Mass/Vol] 34.0 g/dL Normal 29.9-35.2 [facility] Comment on above: Performed By: #### C BC ####[facility] [address] [place], [place] [address]Dr. Shukri Guillen MCV (RBC) [Entitic vol] 86.2 fL Normal 80.0-94.0 [facility] Comment on above: Performed By: #### C BC ####[facility] [address] [place], [place] [address]Dr. Shukri Guillen MONO # 0.8 103/ul Normal 0.3-0.8 [facility] Comment on above: Performed By: #### C BC ####[facility] [address] [place], [place] [address]Dr. Shukri Guillen Monocytes/100 WBC (Bld) 7.9 % Normal 1.7-12.0 [facility] Comment on above: Performed By: #### C BC ####[facility] [address] [id number]. Shukri Guillen NEUT # 6.3 103/ul Normal 1.4-6.5 [facility] Comment on above: Performed By: #### C BC ####[facility] [address] [id number]. Shukri Guillen Neutrophils/100 WBC (Bld) 62.0 % Normal 43.0-75.0 [facility] Comment on above: Performed By: #### C BC ####[facility] [address] [address]Dr. Shukri Guillen Platelet mean volume (Bld) [Entitic vol] 10.1 fL Normal 9.5-13.5 [facility] Comment on above: Performed By: #### C BC ####[facility] [address] [address]Dr. Shukri Guillen PLT 226 103/ul Normal 150-450 [facility] Comment on above: Performed By: #### C BC ####[facility] [address] [id number]. Shukri Guillen RBC 4.92 106/ul Normal 4.70-6.10 [facility] Comment on above: Performed By: #### C BC ####[facility] [address] [id number]. Shukri Guillen WBC 10.2 103/ul Normal 4.0-11.0 [facility] Comment on above: Performed By: #### C BC ####[facility] [address] [id number]. Shukri Guillen LIPID PROFILEon 06-09-2022 CHOL-HDL RATIO NORM SEE BELOW Normal [facility] Comment on above: Result Comment: 3.3 - 4.4 LOW RISK 4.4 - 7.1 AVERAGE RISK 7.1 - 11.0 MODERATE RISK >11.0 HIGH RISK Performed By: #### L IPID, CMP #### [facility] [address] [address] [address] Shukri Guillen Cholesterol [Mass/Vol] 206 mg/dL Critically high <=200 [facility] Comment on above: Performed By: #### L IPID, CMP #### [facility] [address] [address] [address] Shukri Guillen Cholesterol in HDL [Mass/Vol] 33 mg/dL Critically low 40-60 [facility] Comment on above: Performed By: #### L IPID, CMP #### [facility] [address] [address] [address] Shukri Guillen Cholesterol in LDL [Mass/Vol] 147.4 mg/dL Normal [facility] Comment on above: Performed By: #### L IPID, CMP #### [facility] [address] [address] [address] Shukri Guillen Cholesterol.total/Cho lesterol in HDL [Mass ratio] 6.2 {ratio} Normal [facility] Comment on above: Performed By: #### L IPID, CMP #### [facility] [address] [address] [address] Shukri Guillen HDL NORMAL > or = 60 mg/dl - LOW CARDIOVASCULAR RISK <40 mg/dl - HIGH CARDIOVASCULAR RISK Normal [facility] Comment on above: Performed By: #### L IPID, CMP #### [facility] [address] [address] [address] Shukri Guillen LDL CALC NORMAL SEE BELOW Normal [facility] Comment on above: Result Comment: <100 mg/dl OPTIMAL 100 - 129 mg/dl NEAR OR ABOVE OPTIMAL 130 - 159 mg/dl BORDERLINE HIGH 160 - 189 mg/dl HIGH >190 mg/dl VERY HIGH Performed By: #### L IPID, CMP #### [facility] [address] [address] [address] Shukri Guillen Triglyceride [Mass/Vol] 128 mg/dL Normal <=150 [facility] Comment on above: Performed By: #### L IPID, CMP #### [facility] [address] [address] [address] Shukri Guillen VLDL CALC 25.6 mg/dL Normal [facility] Comment on above: Performed By: #### L IPID, CMP #### [facility] [address] [address] [address] Shukri Guillen PROF 14(COMP METB)on 022 Albumin [Mass/Vol] 4.1 g/dL Normal 3.4-5.0 [facility] Comment on above: Performed By: #### L IPID, CMP #### [facility] [address] [address] [address] Shukri Guillen Albumin/Globulin [Mass ratio] 1.1 {ratio} Normal [facility] Comment on above: Performed By: #### L IPID, CMP #### [facility] [address] [place] [address] Dr. Shukri Guillen ALP [Catalytic activity/Vol] 89 U/L Normal 46-116 [facility] Comment on above: Performed By: #### L IPID, CMP #### [facility] [address] [place] [address] Dr. Shukri Guillen ALT [Catalytic activity/Vol] 26 U/L Normal 16-63 [facility] Comment on above: Performed By: #### L IPID, CMP #### [facility] [address] [place] [address] Dr. Shukri Guillen Anion gap [Moles/Vol] 13.8 mmol/L Normal [facility] Comment on above: Performed By: #### L IPID, CMP #### [facility] [address] [address] [address] Shukri Guillen AST [Catalytic activity/Vol] 9 U/L Critically low 15-37 [facility] Comment on above: Performed By: #### L IPID, CMP #### [facility] [address] [place] [address] Dr. Shukri Guillen Bilirubin [Mass/Vol] 0.5 mg/dL Normal 0.2-1.0 [facility] Comment on above: Performed By: #### L IPID, CMP #### [facility] [address] [place] [address] Dr. Shukri Guillen Calcium [Mass/Vol] 9.3 mg/dL Normal 8.5-10.1 [facility] Comment on above: Performed By: #### L IPID, CMP #### [facility] [address] [place] [address] Dr. Shukri Guillen Chloride [Moles/Vol] 104 mmol/L Normal 98-107 [facility] Comment on above: Performed By: #### L IPID, CMP #### [facility] [address] [address] [address] Shukri Guillen CO2 [Moles/Vol] 26.1 mmol/L Normal 21.0-32.0 [facility] Comment on above: Performed By: #### L IPID, CMP #### [facility] [address] [place] [address] Dr. Shukri Guillen Creatinine [Mass/Vol] 0.84 mg/dL Normal 0.70-1.30 [facility] Comment on above: Performed By: #### L IPID, CMP #### [facility] [address] [place] [address] Dr. Shukri Guillen EGFR-AF EQUATORIAL GUINEAN >60 Normal >=60 [facility] Comment on above: Performed By: #### L IPID, CMP #### [facility] [address] [place] [address] Dr. Shukri Guillen EGFR-NON AF EQUATORIAL GUINEAN >60 Normal >=60 [facility] Comment on above: Performed By: #### L IPID, CMP #### [facility] [address] [place] [address] Dr. Shukri Guillen Globulin (S) [Mass/Vol] 3.8 g/dL Normal [facility] Comment on above: Performed By: #### L IPID, CMP #### [facility] [address] [place] [address] Dr. Shukri Guillen Glucose [Mass/Vol] 99 mg/dL Normal 74-106 [facility] Comment on above: Performed By: #### L IPID, CMP #### [facility] [address] [place] [address] Dr. Shukri Guillen Potassium [Moles/Vol] 3.9 mmol/L Normal 3.5-5.1 [facility] Comment on above: Performed By: #### L IPID, CMP #### [facility] [address] [place] [address] Dr. Shukri Guillen Protein [Mass/Vol] 7.9 g/dL Normal 6.4-8.2 [facility] Comment on above: Performed By: #### L IPID, CMP #### [facility] [address] [place] [address] Dr. Shukri Guillen Sodium [Moles/Vol] 140 mmol/L Normal 136-145 [facility] Comment on above: Performed By: #### L IPID, CMP #### [facility] [address] [place] [address] Dr. Shukri Guillen Urea nitrogen [Mass/Vol] 12.0 mg/dL Normal 7.0-18.0 [facility] Comment on above: Performed By: #### L IPID, CMP #### [facility] [address] [place] [address] Dr. Shukri Guillen Urea nitrogen/Creatinine [Mass ratio] 14.3 mg/mg Normal [facility] Comment on above: Performed By: #### L IPID, CMP #### [facility] [address] [place] [address] Dr. Shukri Guillen Vital Signs Date Time Vital Sign Value Performing Clinician Facility 12-20-2024 15:35-0500 Body height 170.2 cm Kamaljit [place] DO Work Phone: [facility] 12-20-2024 15:35-0500 Body mass index (BMI) [Ratio] 44.32 kg/m2 Kamaljit [place] DO Work Phone: [facility] 12-20-2024 15:35-0500 Body temperature 96.69 [degF] Kamaljit [place] DO Work Phone: [facility] 12-20-2024 15:35-0500 Body weight 128.37 kg Kamaljit [place] DO Work Phone: [facility] 12-20-2024 15:35-0500 Diastolic blood pressure 76 mm[Hg] Kamaljit [place] DO Work Phone: [facility] 12-20-2024 15:35-0500 Heart rate 84 /min Kamaljit [place] DO Work Phone: [facility] 12-20-2024 15:35-0500 SaO2% (BldA) [Mass fraction] 97 % Kamaljit [place] DO Work Phone: [facility] 12-20-2024 15:35-0500 Systolic blood pressure 124 mm[Hg] Kamaljit [place] DO Work Phone: [facility] 06-22-2024 13:44-0400 Body height 170.2 cm Kamaljit [place] DO Work Phone: [facility] 06-22-2024 13:44-0400 Body mass index (BMI) [Ratio] 40.91 kg/m2 Kamaljit [place] DO Work Phone: [facility] 06-22-2024 13:44-0400 Body temperature 98.8 [degF] Kamaljit [place] DO Work Phone: [facility] 06-22-2024 13:44-0400 Body weight 118.48 kg Kamaljit [place] DO Work Phone: [facility] 06-22-2024 13:44-0400 Diastolic blood pressure 108 mm[Hg] Kamaljit [place] DO Work Phone: [facility] 06-22-2024 13:44-0400 Heart rate 84 /min Kamaljit [place] DO Work Phone: [facility] 06-22-2024 13:44-0400 SaO2% (BldA) [Mass fraction] 98 % Kamaljit [place] DO Work Phone: [facility] 06-22-2024 13:44-0400 Systolic blood pressure 162 mm[Hg] Kamaljit [place] DO Work Phone: [facility] 03-10-2023 14:12-0400 Blood Pressure Location Marsha DRAKE [facility] 03-10-2023 14:12-0400 Diastolic blood pressure 84 mm[Hg] Marsha DRAKE [facility] 03-10-2023 14:12-0400 Heart rate 72 /min Marsha DRAKE [facility] [place] 03-10-2023 14:12-0400 Respiratory rate 16 /min Marsha DRAKE [facility] [place] 03-10-2023 14:12-0400 Systolic blood pressure 126 mm[Hg] Marsha DRAKE [facility] Encounters Encounter Date Encounter Type Care Provider Facility Start: 05-08-2025 End: 05-08-2025 Refill Kamaljit L [place] DO Work Phone: [facility] 175 Comment on above: Intertriginous sinai diasis Start: 12-20-2024 End: 12-20-2024 Patient encounter status Kamaljit L [place] DO Work Phone: [facility] Start: 12-20-2024 End: 12-20-2024 Periodic preventive med est patient 18-39 yrs Kamaljit L [place] DO Work Phone: [facility] 230 Comment on above: Well adult exam ([facility] Dx); Insomnia, unspecified type; Hidradenitis suppurativa; Insulin resistance; Screening for heart disease Start: 12-20-2024 End: 12-20-2024 ambulatory KAMALJIT L CUTLER Not Available Start: 12-20-2024 End: 12-20-2024 Bamboo flowsheet Kamaljit L [place] DO Work Phone: [facility] 230 Start: 12-20-2024 End: 12-20-2024 Bamboo flowsheet Kamaljit L [place] DO Work Phone: [facility] 230 Start: 07-05-2024 End: 07-05-2024 ambulatory KAMALJIT L CUTLER Not Available Start: 06-22-2024 End: 06-22-2024 Office outpatient visit 25 minutes Kamaljit L [place] DO Work Phone: [facility] 230 Comment on above: Hidradenitis suppura tiva (Primary Dx); Intertriginous candidiasis Start: 06-22-2024 End: 06-22-2024 ambulatory KAMALJIT WESTON Not Available Start: 05-16-2024 End: 05-16-2024 ambulatory Belgica Ryan [facility] Work Phone: Start: 05-16-2024 End: 05-16-2024 Departed Referred SENIOR DENTIST-Remington Ryan Work Phone: [facility] [place] Work Phone: Start: 05-02-2024 End: 05-02-2024 ambulatory KAMALJIT WESTON Not Available Start: 08-03-2023 End: 08-03-2023 ambulatory SENIOR DENTIST-Remington Ryan Work Phone: [facility] Work Phone: Start: 08-03-2023 End: 08-03-2023 Departed Referred SENIOR DENTIST-Remington Ryan Work Phone: [facility] [place] Work Phone: Start: 03-10-2023 End: 03-10-[address] MARSHA DRAKE . Facility:[facility] Start: 03-10-2023 End: 03-11-2023 ambulatory Marsha DRAKE Facility:[facility] Start: 03-10-2023 End: 03-10-2023 Patient encounter procedure Marsha DRAKE [facility] Start: 03-09-2023 End: 03-10-[address] MAHENDRA HARTMAN Facility:[facility] Start: 03-08-2023 ambulatory Marsha DRAKE Facility:[facility] Start: 03-03-2023 End: 03-03-[address] MAHENDRA HARTMAN Facility:[facility] Start: 12-13-2022 End: 12-13-[address] MAHENDRA HARTMAN Facility:[facility] Start: 06-09-2022 End: 06-10-[address] DOCTOR ORTA Facility:[facility] Procedures Date Procedure Procedure Detail Performing Clinician Start: 05-16-2024 Investigation of transfusion reaction SENIOR DENTIST-Remington Ryan Work Phone: Appendectomy Marsha VARSHA Bladder excision Marsha AYAAN Silveira Tonsillectomy and adenoidectomy Marsha KUORaoul Plan of Treatment Date Care Activity Detail Author Start: 07-23-2025 Influenza vaccination Influenz a Vaccine (Season Ended) [facility] Start: 12-20-2024 End: 12-20-2024 Patient encounter procedure 12/20/2024 3:40 PM EST Office Visit [facility] [address] [place] [address] Kamaljit Weston DO [address] [place] [address] Arrived [facility] 230 Comment on above: Arrived Start: 12-20-2024 End: 12-20-2025 CBC W Auto Differential panel - Blood CBC and differential Lab Routine Insulin resistance Screening for heart disease Well adult exam Expected: 12/20/2024 (Approximate), Expires: 12/20/2025 [facility] Work Phone: Comment on above: Expected: 12/20/2024 (Approximate), Expires: 12/20/2025 Start: 12-20-2024 End: 12-20-2025 Comprehensive metabolic 2000 panel - Serum or Plasma Comprehensive metabolic panel Lab Routine Insulin resistance Screening for heart disease Well adult exam Expected: 12/20/2024 (Approximate), Expires: 12/20/2025 [facility] Comment on above: Expected: 12/20/2024 (Approximate), Expires: 12/20/2025 Start: 12-20-2024 End: 12-20-2025 Hemoglobin A1c/Hemoglobin.total in Blood Hemoglobin A1c Lab Routine Insulin resistance Expected: 12/20/2024 (Approximate), Expires: 12/20/2025 [facility] Comment on above: Expected: 12/20/2024 (Approximate), Expires: 12/20/2025 Start: 12-20-2024 End: 12-20-2025 Lipid 1996 panel - Serum or Plasma Lipid panel Lab Routine Insulin resistance Screening for heart disease Well adult exam Expected: 12/20/2024 (Approximate), Expires: 12/20/2025 [facility] Comment on above: Expected: 12/20/2024 (Approximate), Expires: 12/20/2025 Start: 07-23-2024 Influenza vaccination Influenza Vacc ine (#1) [facility] Start: 05-16-2024 Superficial Wound Culture Superficial Wound Culture [facility] Start: 08-03-2023 Superficial Wound Culture Superficial Wound Culture [facility] Bacteria identified in Unspecified specimen by Aerobe culture [facility] Immunizations Immunization Date Immunization Notes Care Provider Fa cility 06-06-2021 SARS-CoV-2 (COVID-19 ) mRNA BNT-162b2 [facility] Comment on above: Result Comment: 2022: TPVAL 05-14-2021 SARS-CoV-2 (COVID-19 ) mRNA BNT-162b2 [facility] Comment on above: Result Comment: 2022: TPVAL 01-11-2003 hepatitis B vaccine, pediatric or pediatric/adolescent dosage Kamaljit [place] DO Work Phone: [facility] 07-18-2002 hepatitis B vaccine, pediatric or pediatric/adolescent dosage Kamaljit [place] DO Work Phone: [facility] 06-14-2002 diphtheria, tetanus toxoids and acellular pertussis vaccine, unspecified formulation Kamaljit [place] DO Work Phone: [facility] 06-14-2002 hepatitis B vaccine, pediatric or pediatric/adolescent dosage Kamaljit [place] DO Work Phone: [facility] 06-14-2002 measles, mumps and rubella virus vaccine Kamaljit [place] DO Work Phone: [facility] 08-07-1992 diphtheria, tetanus toxoids and pertussis vaccine Kamaljit [place] DO Work Phone: [facility] 05-05-1991 diphtheria, tetanus toxoids and pertussis vaccine Kamaljit [place] DO Work Phone: [facility] 05-05-1991 haemophilus influenzae type b vaccine, conjugate unspecified formulation Kamaljit [place] DO Work Phone: [facility] 05-05-1991 measles, mumps and rubella virus vaccine Kamaljit [place] DO Work Phone: [facility] 05-05-1991 trivalent poliovirus vaccine, live, oral Kamaljit [place] DO Work Phone: [facility] 1990 diphtheria, tetanus toxoids and pertussis vaccine Kamaljit [place] DO Work Phone: [facility] 1990 trivalent poliovirus vaccine, live, oral Kamaljit [place] DO Work Phone: [facility] 1990 diphtheria, tetanus toxoids and acellular pertussis vaccine, unspecified formulation Kamaljit [place] DO Work Phone: [facility] 1990 poliovirus vaccine, unspecified formulation Kamaljit [place] DO Work Phone: [facility] NEGATED: Highlighted row has not occurred!03-10-2023 influenza virus vaccine, unspecified formulation Marsha DRAKE [facility] Payers Date Payer Category Payer Self-pay [address] [facility] [id number] 2022 Unknown [employer] [id number] 2022-Present [phone] [address] [address] [place] [address] [id number] 1990 Unknown [id number]. [id number] 1990 Unknown [id number]. 2.593 1990 Unknown [id number] [id number]. 2.593 1990 Unknown [id number]. 2.593 1990 Unknown [id number] [id number]. 2.593 1990 Unknown [id number] [id number]. 2.727 1990 Unknown [id number] [id number]. 2.1259 1990 Unknown [id number] [id number]. 2.1259 1990 Unknown [id number] [id number]. 2.1259 1990 Unknown [id number] [id number]. 2.1259 1959 Unknown [id number] 1959 Unknown [id number] Medicaid [id number] Unknown [id number] [id number] Worker's Compensation [employer] [id number] Social History Date Type Detail Facility Start: 03-10-2023 Tobacco smoking status Heavy t obacco smoker (finding) [facility] Tobacco smoking status Smokeless tobacco user within last 30 days [facility] Start: 06-22-2024 End: 07-05-2024 Sex Assigned At Male [facility] Start: 1990 Sex Assigned At Male [facility] Start: 03-09-2023 Tobacco smoking stat [facility] Smoker (finding) [facility] Start: 04-28-2023 Tobacco smoking stat [facility] Ex-smoker [facility] History of tobacco use Cigarette Smoker [facility] Start: 04-28-2023 Tobacco use and exposure Smokeless tobacco non-user [facility] Start: 06-22-2024 End: 07-05-2024 History of Social function [facility] How often to you hav e a drink containing alcohol? Never [facility] Start: 1990 Sex assigned at Not on file N [facility] Start: 07-05-2024 End: 12-20-2024 Alcoholic beverage intake Ex-drinker (finding) [facility] Functional Status Date Assessment Result Facility 03-10-2023 Functional Status N/A [facility] Clinical Notes 03-10-2023 to 12-20-2024 Kamaljit Weston, DO - 12/20/2024 3:40 PM Garcia Weston, DO - 06/22/2024 1:40 PM EDTLaboratory Note Date & Type Note Facility 12-20-2024 History of Present illness Narrative Images from the original note were not included. [facility] KENIA Godinez SUBJECTIVE: HPI: Josie Solis is a 34 y.o. male who presents with chief complaint of No chief complaint on file. Pt is here for [facility] paperwork check up, he has paperwork to have this renewed. Also would like to discuss sleeping issues, Trazodone is not helping as much anymore. I have reviewed and reconciled the history and medication list with the patient today. Depression: Not at risk (06/22/2024) PHQ-2 PHQ-2 Score: 2 reports that he has quit smoking. His smoking use included cigarettes. He has never used smokeless tobacco. He reports that he does not currently use alcohol. He reports that he does not use drugs. OBJECTIVE: 12/11/2022 12:00 PM 03/05/2023 12:00 PM 04/28/2023 2:24 PM 05/02/2024 2:24 PM 06/22/2024 1:44 PM 07/05/2024 3:10 PM 12/20/2024 3:35 PM Vitals BMI 42.57 kg/m2 38.99 kg/m2 40.25 kg/m2 40.31 kg/m2 40.91 kg/m2 40.41 kg/m2 44.32 kg/m2 BSA (m2) 2.47 m2 2.36 m2 2.35 m2 2.35 m2 2.36 m2 2.35 m2 2.46 m2 Systolic 134 120 140 162 126 124 Diastolic 82 80 90 108 72 76 Heart Rate 93 81 84 82 84 SpO2 97 % 97 % 98 % 98 % 97 % Temp 97.6 F 97.5 F 98.8 F 99.2 F 96.7 F Height (in) 5' 8 5' 8 5' 7 5' 7 5' 7 5' 7 5' 7 Weight (lb) 256.4 257 257.4 261.2 258 283 Visit Report Report Report Report Report Report Physical Exam Constitutional: General: He is not in acute distress. Appearance: He is not ill-appearing. HENT: Head: Normocephalic. Cardiovascular: Rate and Rhythm: Normal rate and regular rhythm. Heart sounds: No murmur heard. Pulmonary: Effort: Pulmonary effort is normal. Breath sounds: Normal breath sounds. No wheezing. Abdominal: General: Abdomen is flat. There is no distension. Tenderness: There is no abdominal tenderness. Musculoskeletal: General: No deformity. Normal range of motion. Cervical back: Normal range of motion. Skin: General: Skin is warm and dry. Neurological: General: No focal deficit present. Mental Status: He is alert and oriented to person, place, and time. Psychiatric: Mood and Affect: Mood normal. Behavior: Behavior normal. Thought Content: Thought content normal. Judgment: Judgment normal. No results found for this or any previous visit (from the past 4 weeks). ASSESSMENT AND PLAN: Assessment/Plan Diagnoses and all orders for this visit: Well adult exam - CBC and differential; Future - Comprehensive metabolic panel; Future - Lipid panel; Future Insomnia, unspecified type - amitriptyline (Elavil) 50 MG tablet; Take 1 tablet (50 mg) by mouth at bedtime Hidradenitis suppurativa Insulin resistance - CBC and differential; Future - Comprehensive metabolic panel; Future - Lipid panel; Future - Hemoglobin A1c; Future Screening for heart disease - CBC and differential; Future - Comprehensive metabolic panel; Future - Lipid panel; Future Preventative care discussed as appropriate. Previous labs were reviewed, new orders placed as appropriate. Recommend continuing annual wellness examinations. Good control of HS, follows with derm - FMLA paperwork completed and sent Alternate med for sleep discussed Kamaljit Weston DO Patient Active Problem List Diagnosis Anxiety Asthmatic bronchitis (CMS/HCC) Depression (CMS/HCC) Excessive thirst Insomnia Abscess of right buttock BMI 40.0-44.9, adult (CMS/HCC) Hidradenitis suppurativa Smoker Past Medical History: Diagnosis Date Anxiety Asthma (CMS/HCC) Asthmatic bronchitis (CMS/HCC) Depression (CMS/HCC) Insomnia Polydipsia documented in this encounter [facility] 06-22-2024 History of Present illness Narrative Images from the original note were not included. SUBJECTIVE: HPI: Josie Solis is a 34 y.o. male who presents with chief complaint of ER F/U Staph Infection (Patient presents today with a staph infection in his groin area. He states that he thinks that it is getting worse. He doesn't think the ABX is working. ) HPI Depression: Not at risk (06/22/2024) PHQ-2 PHQ-2 Score: 2 reports that he has quit smoking. His smoking use included cigarettes. He has never used smokeless tobacco. He reports that he does not currently use alcohol. He reports that he does not use drugs. OBJECTIVE: 03/06/2021 12:00 PM 12/11/2022 12:00 PM 03/05/2023 12:00 PM 04/28/2023 2:24 PM 05/02/2024 2:24 PM 06/22/2024 1:44 PM 07/05/2024 3:10 PM Vitals BMI 42.57 kg/m2 42.57 kg/m2 38.99 kg/m2 40.25 kg/m2 40.31 kg/m2 40.91 kg/m2 40.41 kg/m2 BSA (m2) 2.47 m2 2.47 m2 2.36 m2 2.35 m2 2.35 m2 2.36 m2 2.35 m2 Systolic 132 134 120 140 162 126 Diastolic 78 82 80 90 108 72 Heart Rate 93 81 84 82 SpO2 97 % 97 % 98 % 98 % Temp 97.6 F 97.5 F 98.8 F 99.2 F Height (in) 5' 8 5' 8 5' 8 5' 7 5' 7 5' 7 5' 7 Weight (lb) 280 256.4 257 257.4 261.2 258 Visit Report Report Report Report Report Physical Exam Constitutional: General: He is not in acute distress. Appearance: He is not ill-appearing or toxic-appearing. HENT: Head: Normocephalic. Eyes: Conjunctiva/sclera: Conjunctivae normal. Pulmonary: Effort: Pulmonary effort is normal. No respiratory distress. Breath sounds: No stridor. Abdominal: General: Abdomen is flat. Tenderness: There is no abdominal tenderness. Musculoskeletal: General: No swelling or signs of injury. Normal range of motion. Cervical back: Normal range of motion. Comments: Erythema/intertrigo noted in groin bilat with purulent drainage from HS tracts Skin: General: Skin is warm and dry. Neurological: General: No focal deficit present. Mental Status: He is alert. Mental status is at baseline. Psychiatric: Mood and Affect: Mood normal. Behavior: Behavior normal. Thought Content: Thought content normal. Judgment: Judgment normal. Recent Results (from the past 672 hour(s)) AEROBIC CULTURE Collection Time: 06/15/24 4:00 PM Result Value Ref Range AEROBIC CULTURE Aerobic Culture WILL FOLLOW AEROBIC CULTURE Organism: Staphylococcus aureus : AEROBIC CULTURE *ABNORMAL* AEROBIC CULTURE Heavy growth AEROBIC CULTURE AEROBIC CULTURE Growth observed. Further testing to rule out possible pathogen(s) AEROBIC CULTURE is in progress. AEROBIC CULTURE Staphylococcus aureus AEROBIC CULTURE Organism: Methicillin Resis Staph Aureus : AEROBIC CULTURE *ABNORMAL* AEROBIC CULTURE Methicillin - resistant AEROBIC CULTURE Based on resistance to oxacillin this isolate would be AEROBIC CULTURE resistant to all currently available beta-lactam AEROBIC CULTURE antimicrobial agents, with the exception of the newer AEROBIC CULTURE cephalosporins with anti-MRSA activity, such as AEROBIC CULTURE Ceftaroline AEROBIC CULTURE Heavy growth AEROBIC CULTURE Organism: Pseudomonas aeruginosa,, : AEROBIC CULTURE *ABNORMAL* AEROBIC CULTURE Moderate growth AEROBIC CULTURE AEROBIC CULTURE Mixed skin ritu including multiple gram negative rods. AEROBIC CULTURE Heavy growth AEROBIC CULTURE Methicillin Resis Staph Aureus AEROBIC CULTURE Pseudomonas aeruginosa,, AEROBIC CULTURE O:MRSA Isolated AEROBIC CULTURE O:PSEUAE Isolated AEROBIC CULTURE O:STAAUR Isolated AEROBIC CULTURE Organism: 2.1 Antibiotic Interpretation ALLAN Status AEROBIC CULTURE (S) Ciprofloxacin Ciprofloxacin S F AEROBIC CULTURE (R) Erythromycin Erythromycin R F AEROBIC CULTURE (S) Gentamicin Gentamicin S F AEROBIC CULTURE (S) Levofloxacin Levofloxacin S F AEROBIC CULTURE (S) Linezolid Linezolid S F AEROBIC CULTURE (R) Oxacillin Oxacillin R F AEROBIC CULTURE (R) Penicillin Penicillin R F AEROBIC CULTURE (S) Rifampin Rifampin S F AEROBIC CULTURE (R) Tetracycline Tetracycline R F AEROBIC CULTURE (S) Trimethoprim/Sulfamethoxazole Trimethoprim/Sulfamethoxazole S F AEROBIC CULTURE (S) Vancomycin Vancomycin S F AEROBIC CULTURE (R) Clindamycin Clindamycin R F AEROBIC CULTURE Organism: 2.2 Antibiotic Interpretation ALLAN Status AEROBIC CULTURE (S) Amikacin Amikacin S F AEROBIC CULTURE (S) Cefepime Cefepime S F AEROBIC CULTURE (S) Ceftazidime Ceftazidime S F AEROBIC CULTURE (S) Ciprofloxacin Ciprofloxacin S F AEROBIC CULTURE (S) Gentamicin Gentamicin S F AEROBIC CULTURE (S) Imipenem Imipenem S F AEROBIC CULTURE (S) Levofloxacin Levofloxacin S F AEROBIC CULTURE (S) Meropenem Meropenem S F AEROBIC CULTURE (S) Piperacillin Piperacillin S F AEROBIC CULTURE (S) Ticarcillin Ticarcillin S F AEROBIC CULTURE (S) Tobramycin Tobramycin S F GRAM STAIN RESULT Collection Time: 06/15/24 4:00 PM Result Value Ref Range GRAM STAIN RESULT Gram Stain Result GRAM STAIN RESULT No white blood cells seen. GRAM STAIN RESULT GRAM STAIN RESULT Many gram positive cocci. GRAM STAIN RESULT GRAM STAIN RESULT Moderate gram negative rods. GRAM STAIN RESULT Performed at: [facility] GRAM STAIN RESULT [address] [place], [place] [id number] GRAM STAIN RESULT Data Control Clerk: Noel Reich PhD, Phone: [phone] ANAEROBIC CULTURE Collection Time: 06/15/24 4:00 PM Result Value Ref Range ANAEROBIC CULTURE Anaerobic Culture ANAEROBIC CULTURE No anaerobic growth in 72 hours. POCT Urinalysis dipstick Collection Time: 07/05/24 3:50 PM Result Value Ref Range Color, UA Yellow Clarity, UA Cloudy Glucose, UA Negative Negative - 2000(110) ++++ mg/dL Bilirubin, UA Negative Negative - 4(70) +++ mg/dL Ketones, UA Negative Negative - 160(16) ++++ mg/dL Spec Grav, UA 1.020 1 - 1.03 Blood, UA Negative Negative - 50 Simone/mcL pH, UA 7.0 5 - 9 Protein, UA Negative Negative - 2000(20) ++++ mg/dL Urobilinogen, UA 0.2 0.2 - 12 mg/dL Leukocytes, UA Negative Negative - 500+++ Jarvis/mcL Nitrite, UA Negative Negative - Positive ASSESSMENT AND PLAN: Assessment/Plan Diagnoses and all orders for this visit: Hidradenitis suppurativa - levoFLOXacin (Levaquin) 750 MG tablet; Take 1 tablet (750 mg) by mouth Daily for 10 days Intertriginous candidiasis - fluconazole (Diflucan) 150 MG tablet; Take 1 tablet (150 mg) by mouth Daily - clotrimazole-betamethasone (Lotrisone) cream; Apply topically 2 (two) times a day for 28 days Culture reviewed, treatment given based on this Follow up in 2 weeks Patient Active Problem List Diagnosis Anxiety Asthmatic bronchitis (CMS/HCC) Depression (CMS/HCC) Excessive thirst Insomnia Abscess of right buttock BMI 40.0-44.9, adult (CMS/HCC) Hidradenitis suppurativa Smoker Past Medical History: Diagnosis Date Anxiety Asthma (CMS/HCC) Asthmatic bronchitis (CMS/HCC) Depression (CMS/HCC) Insomnia Polydipsia documented in this encounter [facility] 03-10-2023 Note Chief Complaint consultation for abscess HPI Staff 33 year old male presents on consultation from [facility] for gluteal abscess. Presented to ED yesterday with one to two day onset of right gluteal abscess. States area is swollen, tender and draining mostly serous fluid. ED did not I/D abscess due to known appointment with this office today. Patient with long standing history of hidradenitis. History of Present Illness 33 yo male with h/o hidradenitis suppurativa, seen in ED 1 week ago for scrotal swelling and abscesses; placed on antibiotics, developed right medial buttock abscess over past several days, increased pain and swelling; seen in [facility] ED last evening, ct scan revealed 3 cm superficial abscess medial right buttock; no I & D performed; patient placed on Augmentin; reports minimal serous drainage from area; no fevers; still sore; smokes daily. Review of Systems PHQ Score Initial Depression Screen Score: 0 ROS - Provider Constitutional: no fever, no sweats, no weight loss. Eyes: no glasses, no blurred vision, no visual loss. ENMT: no dentures, no hoarseness, no swallowing difficulties, no hearing loss, no ear infection(s), no nose bleeds. Cardiovascular: normal blood pressure, no chest pain, regular heartbeat, no heart murmur. Respiratory: no shortness of breath, no cough, no asthma, no wheezing. Gastrointestinal: no nausea, no vomiting, no diarrhea, no constipation, no blood in stool, no change in bowel habits, no abdominal pain, no hepatitis. Genitourinary: no kidney stones, no urine infection, no dysuria. Musculoskeletal: no pain, no weakness. Skin: no changing moles, no rash, yes skin lumps. Neurologic: no seizures, no epilepsy, no headache. Psychiatric: no emotional or psychiatric problem. Heme/Lymph: no bleeding problems, no anemia, no blood clots, no transfusions. Allergy/Immunologic: no swollen lymph nodes/glands, no IV drug abuse. Other: Additional ROS info: Except as noted in the above Review of Systems and in the History of Present Illness, all other systems have been reviewed and are negative or noncontributory. Physical Exam Vitals & Measurements HR: 72(Peripheral) RR: 16 BP: 126/84 HT: 66 in HT: 167.6 cm WT: 115.9 kg WT: 254.98 lb BMI: 41.26 HEENT: normal conjunctiva, sclera clear, no scleral icterus, EOM intact, PERRLA, oral mucosa moist without lesions. Neck: trachea midline, no mass, symmetric, no thyromegaly or nodules, no adenopathy Respiratory: lungs CTA, respirations non labored. Cardiovascular: regular rate and rhythm, no murmur, no pedal edema or varicosities. Musculoskeletal: normal gait, digits and nails without infection, nodes, cyanosis, clubbing. Skin: no rashes, no lesions, no ulcers, right medial buttock with 3 cm superficial abscess, no oben areas, surrounding edema and erythema Psychiatric/Neuro: oriented to time, place, person, judgement normal, affect appropriate for age, insight intact, no focal deficits. Tests: labs reviewed, x-rays reviewed, review of old records completed, Discussed surgical options, risks, and possible complications with patient. Assessment/Plan 1. Abscess of right buttock (L02.31: Cutaneous abscess of buttock) I & D under local anesthesia, cx obtained; patient tolerated well; patient requested script for Ibuprofen 800 mg for pain; call with problems/questions; sitz baths bid. Ordered: ibuprofen, 800 mg = 1 tab(s), Oral, q8hr, not to exceed 3200 mg/day with food or milk, # 30 tab(s), Refills(s) 0, Pharmacy: [facility]/pharmacy #[id number], 167.6, cm, 03/10/23 14:23:00 EDT, Height/Length Dosing, 115.9, kg, 03/10/23 14:23:00 EDT, Weight Dosing Wound Culture Follow-up No qualifying data available Problem List/Past Medical History Ongoing Abscess of right buttock BMI 40.0-44.9, adult Hidradenitis suppurativa Smoker Historical No qualifying data Procedure/Surgical History Appendectomy, Cystectomy, Tonsillectomy and adenoidectomy. Medications acetaminophen-oxycodone 325 mg-5 mg Tab Albuterol (Eqv-ProAir HFA), 2 puff(s), Inhalation, q4hr, PRN amoxicillin-clavulanate 875 mg-125 mg Tab ibuprofen 800 mg Tab, 800 mg= 1 tab(s), Oral, q8hr minocycline Rinvoq sulfamethoxazole-trimethoprim 800 mg-160 mg Tab traZODONE 50 mg Tab, 50 mg= 1 tab(s), Oral, Once a day (at bedtime) Allergies No Known Allergies No Known Medication Allergies Social History Alcohol Current, Beer, 1-2 times per week, 03/10/2023 Substance Abuse - Denies Substance Abuse, 03/10/2023 Tobacco 10 or more cigarettes (1/2 pack or more)/day in last 30 days Tobacco Use:. Smokeless tobacco user within last 30 days Smokeless Tobacco Use:. Cigarettes, Oral, 0.5 per day. Started age 15.0 Years. Yes, 03/10/2023 Family History Heart disease: Father. Immunizations Vaccine Date Status Comments influenza virus vaccine, inactivated - Not Given Patient Refuses SARS-CoV-2 (COVID-19) mRNA BNT-162b2 vax 06/06/2021 Recorded 2023-03-08: TPVAL SARS-CoV-2 (COVID (more content not included)... [facility] Comment on above: Result Comment: Elec tronically Signed By: VARSHA JADE, Marsha Davenport\Date and Time Signed: 03/10/23 21:03 EDT 03-10-2023 Evaluation + Plan note Future Scheduled TestsWound Culture 03/10/23 General Surgery [place] Evaluation note No assessment inform ation available [facility] Work Phone: Evaluation note Diagnosis Hidradenitis suppurativa- Primary Hidradenitis Intertriginous candidiasis [facility] Diagnosis Well adult exam- Primary Routine general medical examination at a health care facility Insomnia, unspecified type Hidradenitis suppurativa Hidradenitis Insulin resistance Other abnormal glucose Screening for heart disease Screening for other and unspecified cardiovascular conditions documented [facility] Diagnosis Intertriginous candidiasis [facility] Narrative No data available for this section [facility] Discharge instructions No data available for this section General Surgery [place] Progress note No data available for this section General Surgery [place] Summary Purpose Family History Relationship Condition Age at Onset Recorded Date/T solomon father Unknown Advance Directives Advance Directive Response Recorded Date/ Time Advance Directives No July 12:56pm Chief Complaint and Reason for Visit Chief Complaint l30.9 Additional Source Comments Patient Care team informatio n (unrecognized section and content) Team Status: Inactive Member Role Status Dates ADIS Taylor Attending Provider Active Team Status: Inactive Member Role Status Dates ADIS Taylor Attending Provider Active Sta rt: May 16, 2024 End: May 16, 2024 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 Specialty Start Date End Date Mahendra Hartman DO [address] [place] [address] PCP - General Family Medicine 04/28/23 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 Specialty Start Date End Date Mahendra Hartman, DO [address] [place] [address] PCP - [facility] 04/28/23 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 Specialty Start Date End Date Mahendra Hartman, DO [address] [place] [address] PCP - [facility] 04/28/23 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 Start Date End Date Mahendra Hartman, DO [address] [place] [address] PCP - [facility] 04/28/23 (unrecognized sect ion and content) No Status Records FoundNo Status Records FoundNo Status Records FoundNo Status Records Found INFORMATION SOURCE (unrecogn ized section and content) DATE CREATED AUTHOR 03/16/2023 [facility] DATE CREATED AUTHOR AUTHOR'S ORGANIZ ATION 03/16/2023 [facility] DATE CREATED AUTHOR AUTHOR'S ORGANIZ ATION 09/28/2024 [facility] DATE CREATED AUTHOR AUTHOR'S ORGANIZ ATION 12/22/2024 [facility] EPIC Goals (unrecognized section and content) Goals may be documented in a n alternate section Reason for Visit (unrecogniz ed section and content) Reason Comments ER F/U Staph Infection Patient presents today with a staph infection in his groin area. He states that he thinks that it is getting worse. He doesn't think the ABX is working. Reason Comments Med Refill FOR RECORDS PERTAINING TO PATIENTS WHO ARE OR HAVE BEEN ENROLLED IN A CHEMICAL DEPENDENCY/SUBSTANCEABUSE PROGRAM, SOME INFORMATION MAY BE OMITTED. This clinical summary was aggregated from multiple sources. Caution should be exercised in using it in the provision of clinical care. This summary normalizes information from multiple sources, and as a consequence, information in this document may materially change the coding, format and clinical context of patient data. In addition, data may be omitted in some cases. CLINICAL DECISIONS SHOULD BE BASED ON THE PRIMARY CLINICAL RECORDS. [facility] [facility]. provides no warranty or guarantee of the accuracy or completeness of information in this document.
--- NOTE | 2025-06-23 16:29 | ECG_ITS ---
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 Measurements Intervals [place] Rate: 80 P: 54 MD: 168 QRS: 64 QRSD: 98 T: 70 QT: 372 QTc: 408 Interpretive Statements 1100 Sinus rhythm 9110 normal ECG Compared to ECG 02/24/2022 08:11:52 No significant changes Electronically Signed On 06-23-2025 21:34:38 EDT by RETA CALERO M.D.
--- NOTE | 2025-06-23 16:29 | XR_ITS ---
[place] [id number] Patient Name: JOSIE SOLIS MRN: [id number] date: 1990 Sex: M Assigned Patient Location: ED.MAIN Current Patient Location: ED.MAIN Accession/Order Number: [id number] Exam Date: 06/23/2025 17:52 Report Date: 06/23/2025 17:53 At the request of: SNEHA MARY MD Procedure: XR chest 1V XR chest 1V 06/23/2025 5:15 PM SIGNS AND SYMPTOMS: ^CP ^Y PROTOCOL: Frontal radiograph of the chest COMPARISON: 02/24/2022 FINDINGS: The trachea is midline. The heart and mediastinal structures are within normal limits. The lung parenchyma is clear. The bony thorax is intact. XR/XR chest 1V IMPRESSION: No acute cardiopulmonary pathology. Impression dictated by: Durga Melgoza M.D. 06/23/2025 5:53 PM Dictation Location: [place] [address] Electronically authenticated by: [id number] Y Date: 06/23/2025 17:53
--- NOTE | 2025-06-23 16:29 | ED.GENADUL1 ---
HPI HPI - General Adult General Chief complaint: Chest Pain Stated complaint: CHEST TIGHTNESS 4 DAYS, CHILLS Time Seen by Provider: 06/23/25 16:23 History of Present Illness HPI narrative: 35-year-old male presents for tightness on the right side of his chest which she has had continuously for 4 days. He states it feels like a panic attack, but then it does not feel like a panic attack. He is also noted some redness in his groin bilaterally and states that he was put on an antifungal cream for this in the past. He has a history of hidradenitis suppurativa but the groin rash is different than that. No fever or known cough. No complaints of back pain or abdominal pain. Related Data Home Medications ?Medication ?Instructions ?Recorded ?Confirmed albuterol sulfate 90 mcg/actuation 2 puff inhalation Q12H PRN 06/15/24 06/23/25 aerosol inhaler shortness of breath or wheezing amitriptyline 50 mg tablet 50 mg PO .qhs 06/23/25 06/23/25 secukinumab 300 mg/2 mL 300 mg subcut .q month 06/23/25 06/23/25 subcutaneous pen injector (Cosentyx UnoReady Pen) Allergies Allergy/AdvReac Type Severity Reaction Status Date / Time No Known Drug Allergies Allergy Verified 06/23/25 16:22 Opioid HPI Opioid Management Most Recent Opioid Data: Last Pain Scale 2 Today, 16:24 Review of Systems ROS Narrative A ten point review of systems is negative except as noted above. PFSH PFSH Social History Little interest or pleasure in doing things: not at all Feeling down, depressed, or hopeless: not at all Exam Narrative Exam Narrative: Nurses note and vital signs reviewed and patient is not hypoxic. General: The patient appears well and in no apparent distress. Patient is resting comfortably on cart. Skin: Warm, dry, no pallor noted. There is in the bilateral inguinal area erythema. It is consistent with a fungal dermatitis. Head: Normocephalic, atraumatic Eye: Normal conjunctiva, no drainage Ears, Nose, Mouth, and Throat: oral mucosa is moist. Nares patent. Cardiovascular: Regular Rate and Rhythm Respiratory: Patient is in no distress, no accessory muscle use, lungs are clear to auscultation, no wheezing, rales or rhonchi Back: non-tender, no CVA tenderness bilaterally to percussion. GI: Soft and nontender Musculoskeletal: The patient has no evidence of calf tenderness, no pitting edema, symmetrical pulses noted bilaterally Neurological: A&O, normal speech Psychiatric: Cooperative Constitutional Vital Signs, click to edit/add: Last Vital Signs Temp 97.7 F 06/23/25 16:24 Pulse 84 06/23/25 16:24 Resp 16 06/23/25 16:24 BP 149/98 H 06/23/25 16:24 Pulse Ox 99 06/23/25 16:24 O2 Del Method Room Air 06/23/25 16:24 Course Vital Signs Vital signs: Vital Signs Temperature 97.7 F 06/23/25 16:24 Pulse Rate 84 06/23/25 16:24 Respiratory Rate 16 06/23/25 16:24 Blood Pressure 149/98 H 06/23/25 16:24 Pulse Oximetry 99 06/23/25 16:24 Oxygen Delivery Method Room Air 06/23/25 16:24 Temperature 97.7 F 06/23/25 16:24 Pulse Rate 84 06/23/25 16:24 Respiratory Rate 16 06/23/25 16:24 Blood Pressure 149/98 H 06/23/25 16:24 Pulse Oximetry 99 06/23/25 16:24 Oxygen Delivery Method Room Air 06/23/25 16:24 Medical Decision Making MDM Narrative Medical decision making narrative: His workup is negative. Troponin is normal. The rest of his workup shows no acute findings. At this point I do not suspect acute coronary syndrome. The possibility that this is due to stress was discussed with the patient. Differential Diagnosis Differential Diagnosis: Myocardial infarction, chest wall pain, anxiety, GERD Lab Data Lab results reviewed: Yes I reviewed the patient's lab results Labs: Lab Results 06/23/25 Range/Units 16:39 WBC 9.9 (4.0-11.0) 10^3/uL RBC 5.00 (4.70-6.10) 10^6/uL Hgb 15.1 (14.0-18.0) g/dL Hct 43.9 (42.0-54.0) % MCV 87.8 (80.0-94.0) fL MCH 30.2 (25.9-34.0) pg MCHC 34.4 (29.9-35.2) g/dL RDW 12.7 (11.0-15.0) % Plt Count 210 (150-450) 10^3/uL MPV 9.3 L (9.5-13.5) fL Neut % (Auto) 64.8 (43.0-75.0) % Lymph % (Auto) 25.0 (20.5-60.0) % Republic % (Auto) 7.3 (1.7-12.0) % Eos % (Auto) 1.5 (0.9-7.0) % Baso % (Auto) 0.7 (0.2-2.0) % Neut # (Auto) 6.4 (1.4-6.5) 10^3/uL Lymph # (Auto) 2.5 (1.2-3.8) 10^3/uL Republic # (Auto) 0.7 (0.3-0.8) 10^3/uL Eos # (Auto) 0.2 (0.0-0.7) 10^3/uL Baso # (Auto) 0.1 (0.0-0.1) 10^3/uL Abs Immat Gran (auto) 0.07 H (0.00-0.03) 10^3/uL Imm/Tot Granulo (auto) 0.7 H (0.0-0.5) % Sodium 139 (136-145) mmol/L Potassium 4.0 (3.5-5.1) mmol/L Chloride 104 (98-107) mmol/L Carbon Dioxide 26.3 (21.0-32.0) mmol/L Anion Gap 12.7 BUN 14.0 (7.0-18.0) mg/dL Creatinine 0.94 (0.70-1.30) mg/dL Est GFR ( Amer) >60 (>=60 mL/min/1.73m^2) Est GFR (Non-Af Amer) >60 (>=60 mL/min/1.73m^2) BUN/Creatinine Ratio 14.9 Glucose 108 H (74-106) mg/dL Calcium 9.1 (8.5-10.1) mg/dL Troponin I High Sens 8.8 (4.0-76.1) pg/mL Imaging Data Chest x-ray: Radiologist's impression: ITS Impressions Chest X-Ray 08/02/25 16:29 IMPRESSION: No acute cardiopulmonary pathology. Impression dictated by: Durga Melgoza M.D. 06/23/2025 5:53 PM [facility] Electron[facility] authenticated by: [id number] Y Date: 06/23/2025 17:53 ECG Data Attestation: I personally reviewed and interpreted this ECG as follows: (EKG on my interpretation shows normal sinus rhythm with a rate of 80 and no acute change) Discharge Plan Discharge Chief Complaint: Chest Pain Clinical Impression: Chest pain Patient Disposition: Home, Self-Care Time of Disposition Decision: 18:02 Condition: Good Mode of Transportation: Private Vehicle Prescriptions / Home Meds: No Action albuterol sulfate 90 mcg/actuation HFA aerosol inhaler 2 puff INHALATION Q12H PRN (Reason: shortness of breath or wheezing) Cosentyx UnoReady Pen 300 mg/2 mL pen injector 300 mg subcut .q month Rx Instructions: inject as 2 x150 mg injections each into different injection sites amitriptyline 50 mg tablet 50 mg PO .qhs Print Language: Romansh Instructions: Chest Pain (ED) Additional Instructions: Follow-up with your PCP, call for an appointment on Wednesday. Return to the emergency department if symptoms worsen. Referrals: LEONEL HARTMAN [Primary Care Provider, Family Practice]
[2025-06-23 16:46] LABS: Hematocrit 43.9 % (42.0-54.0); Hemoglobin 15.1 g/dL (14.0-18.0); Immature Granulocytes Abs Auto 0.07 10^3/uL (0.00-0.03); Immature Granulocytes Pct Auto 0.7 % (0.0-0.5); Lymphocytes Absolute Auto 2.5 10^3/uL (1.2-3.8); Mean Corpuscular HGB Conc 34.4 g/dL (29.9-35.2); Mean Corpuscular Hemoglobin 30.2 pg (25.9-34.0); Mean Corpuscular Volume 87.8 fL (80.0-94.0); Platelet Count 210 10^3/uL (150-450); Red Blood Count 5.00 10^6/uL (4.70-6.10); White Blood Count 9.9 10^3/uL (4.0-11.0)
[2025-06-23 17:09] LABS: Anion Gap 12.7; Blood Urea Nitrogen 14.0 mg/dL (7.0-18.0); Calcium 9.1 mg/dL (8.5-10.1); Carbon Dioxide 26.3 mmol/L (21.0-32.0); Chloride 104 mmol/L (98-107); Estimated GFR (African America >60 (>=60 mL/min/1.73m^2); Estimated GFR (Non-African Ame >60 (>=60 mL/min/1.73m^2); Glucose 108 mg/dL (74-106); Potassium 4.0 mmol/L (3.5-5.1); Sodium 139 mmol/L (136-145)
== END 2025-06-23 18:12 | disposition home or self-care (01) ==
PROVIDERS: Emergency Provider Emergency Medicine; PCP Family Medicine
DX: R07.89 Other chest pain (principal); B35.6 Tinea cruris
CPT/HCPCS: 36415; 71045; 80048; 84484; 85025; 93005; 99285